=== PATIENT | male | born 1965 | race Caucasian/White ===

== ENCOUNTER 2019-12-31 11:05 | Day surgery (SDC) | payer OTHER, SELFPAY ==
[2019-12-31] VITALS (11 sets, daily range): BP systolic 110–136; BP diastolic 65–89; PULSE 60–83; RESP 16–20; TEMP 36.6; O2SAT 93–99; BMI 30.8
--- NOTE | 2019-12-31 | IR_ITS ---
APPROVED REPORT Patient Location: Outpatient [facility]reader Operator: ANA LUISA Samuels RT (R) PROCEDURES Left heart catheterization Left ventriculogram Selective coronary angiogram Drug-eluting stent deployment to the ostial proximal LAD Drug-eluting stent deployment to the distal right coronary arteries posterior descending artery INDICATION Coronary artery disease, Unstable angina Informed consent was obtained prior to the procedure. COMPLICATIONS NONE Estimated Blood Loss: LESS THAN 10 ML TECHNIQUE One percent lidocaine used to anesthetize the right anterior aspect of the wrist. The right radial artery was accessed via the Seldinger technique. A 6 [place] sheath was placed in the right radial artery. 2.5 mg of verapamil, 800 mcg of nitroglycerin, 1mg Lidocaine and 5000 U Heparin were given through the arterial sheath. The trap catheter was also used to perform left heart catheterization, left ventriculogram and selective coronary angiogram. At the end of the diagnostic angiogram therapeutic heparin was administered giving a therapeutic ACT and and I Patsy left guide catheter was placed in the left main artery. A Choice PT extra-support wire was then placed into the LAD where a 3 mm x 26 mm resolute kiya stent was deployed at 18 destinee reducing the critical stenosis to 0%. HAI-3 flow was present before and after the procedure. At the end of the procedure the apparatus was removed and the same catheter was used to intubate the right coronary artery and the wire was placed distally. A 2.25 x 12 mm resolute kiya stent was deployed in the posterior descending artery at 18 destinee reducing the severe stenosis to 0%. HAI-3 flow was present before and after the procedure. At the end of the procedure the apparatus was removed the sheath was removed good hemostasis was achieved using TR banding patient was transferred to the postop holding area stable condition ANGIOGRAPHIC RESULTS The left main artery Normal The left anterior descending artery Has an ostial 80 to 90% stenosis which extends throughout most of the proximal segment. Immediately adjacent to a second diagonal artery is a concentric 50% stenosis followed by an additional mid vessel 40% stenosis. The large first diagonal artery has a mid vessel 60 to 70% stenosis. The circumflex artery Is a nondominant yet still large vessel with a proximal 30% stenosis mid vessel 30% stenosis and a proximal 30% stenosis in the largest terminal obtuse marginal artery The right coronary artery Is a dominant vessel and has a 90% stenosis in the proximal posterior descending artery followed by mid vessel 50% stenosis The DIAZ ventriculogram reveals Normal 65% The left ventricular end-diastolic pressure 10 mmHg IMPRESSION Critical coronary disease as described above Successful stenting of the ostial proximal LAD severe disease reduced to 0% with one drug-eluting stent Persistent moderate to severe disease in the first diagonal artery and mid LAD Severe disease in the posterior descending artery Successful stenting of the posterior descending artery severe disease reduced to 0% with one drug-eluting stent PLAN 1. Brilinta 90 twice daily plus aspirin 81 mg daily 2. Lipitor 80 mg daily 3. Low-dose beta-blockers TORI inhibitors 4. Aggressive control of diabetes 5. Risk factor modification 6. Cardiac rehabilitation 7. Avoidance of tobacco products 8. The first diagonal artery and mid LAD is best managed medically. Should patient continue to experience angina pectoris these lesions could be revascularized at another time. I do believe they would respond most effectively to medical management. Electronically signed by : Bryce Lorenzo, 12/31/2019 12:35
[2019-12-31 11:26] LABS: Basophils # 0.1 K/mm3 (0-0.2); Basophils % 0.5 % (0.1-2.0); Eosinophils # 0.4 K/mm3 (0.0-0.4); Eosinophils % 3.2 % (0.1-12.0); Hematocrit 44.2 % (42.0-52.0); Hemoglobin 15.3 g/dL (14.1-18.0); Lymphocytes # 2.9 K/mm3 (0.7-4.5); Lymphocytes % 24.6 % (10-50); Mean Corpuscular HGB Conc 34.5 g/dL (31.8-35.4); Mean Corpuscular Hemoglobin 30.6 pg (27.0-31.2); Mean Corpuscular Volume 88.6 fl (80-94); Monocytes # 0.6 K/mm3 (0.1-1.0); Monocytes % 4.6 % (1.7-9.3); Neutrophils # 7.9 K/mm3 (1.8-7.8); Platelet Count 213 K/mm3 (142-424); Red Blood Count 4.99 M/mm3 (4.60-6.20); Red Cell Distribution Width 13.8 % (11.5-17.5); White Blood Count 11.8 K/mm3 (4.8-10.8)
[2019-12-31 11:33] LABS: Anion Gap 16.6 mEq/L (5-15); Blood Urea Nitrogen 13 mg/dl (9-20); Calcium 9.3 mg/dl (8.4-10.2); Carbon Dioxide 30 mmol/L (22.0-30.0); Chloride 98 mmol/L (98-107); Creatinine Clearance Estimated 129 mL/min (50-200); Estimated Glomerular Filt Rate 88 ml/min (>60); GFR (African American) 106 ML/MIN (>60); Glucose 153 mg/dl (74-100); Potassium 3.6 mmoL/L (3.5-5.1); Sodium 141 mmol/L (136-145)
[2019-12-31 11:53] LABS: Coronavirus 19 IgG Antibody Negative (Negative); Coronavirus 19 IgM Antibody Negative (Negative)
--- NOTE | 2019-12-31 13:45 | HMH.PHACLD ---
Yovani Marrero has received discharge medication counseling on the following medications: PATIENT IS ALREADY TAKING CARVEDILOL 12.5 MG BID, LOSARTAN 100 MG DAILY, AND ASPIRIN 81 MG DAILY. MD INCREASING ATORVASTATIN DOSE FROM 20 MG TO 80 MG DAILY. MD ALSO STARTING BRILINTA 90 MG BID. DISCUSSED CHANGES WITH PATIENT AND ALSO DISCUSSED HOLDING DOSE OF METFORMIN UNTIL MONDAY.
[2019-12-31 13:52] LABS: CATHL Activated Clotting Time > 400 SEC (74-125)
== END 2019-12-31 15:32 | disposition home or self-care (01) ==
PROVIDERS: PCP Nurse Practitioner Family; Visit Provider Internal Medicine
DX: I25.110 Atherosclerotic heart disease of native coronary artery with unstable angina pectoris (principal); I10 Essential (primary) hypertension; E78.5 Hyperlipidemia, unspecified; E11.9 Type 2 diabetes mellitus without complications; Z82.49 Family history of ischemic heart disease and other diseases of the circulatory system; Z79.01 Long term (current) use of anticoagulants; Z79.4 Long term (current) use of insulin; Z79.899 Other long term (current) drug therapy
CPT/HCPCS: 80048; 85025; 85347; 86328; 92928; 92929; 93458; 99152; 99153; C1725; C1769; C1876; C9600; C9601; J1644; Q9967

== ENCOUNTER → 2020-01-31 14:18 | Outpatient (CLI) | payer OTHER, SELFPAY ==
--- NOTE | 2020-01-31 14:18 | CT_ITS ---
PROCEDURE: CT CHEST WO CON CLINICAL INDICATION: chest pain, dyspnea STENTS PLACED 2-3 WEEKS AGO; CONTINUED MID CHEST AND LEFT ARM PAIN NO PRIOR COMPARISON: No exams were available for comparison TECHNIQUE: Axial images obtained with sagittal and coronal reformats. All CT scans at the facility use one or more dose reduction, viz: automated exposure control, ma/kV adjustment per patient size (including targeted exams where dose is matched to indication, i.e. head), or iterative reconstruction technique. FINDINGS: HEART AND MEDIASTINAL STRUCTURES: There are a few small mediastinal lymph nodes. No dominant adenopathy or hilar adenopathy evident. There are some scattered small mediastinal nodes. Coronary artery calcifications and/or stents are noted in there is minimal thickening of the pericardium. The there is mild thickening of the mid distal aspect of the esophagus. No evidence of aortic aneurysm LUNGS AND PLEURAL SPACES: Noncalcified 4 mm nodule right upper lobe image 22 series 3. 4 mm noncalcified nodule right lower lobe image 39 series 3. 4 mm noncalcified nodule in the right major fissure. Calcified nodule left major fissure 6 in the mid aspect and in the left lower lobe. Noncalcified 6 mm nodule left lower lobe. Noncalcified 6 mm nodule right middle lobe BONY STRUCTURES: No acute bony abnormalities apparent. UPPER ABDOMEN: Unremarkable. ADDITIONAL FINDINGS: There are some scattered small axillary lymph nodes. IMPRESSION: 1. There are scattered noncalcified pulmonary nodules measuring up to 6 mm bilateral. These could be inflammatory/infectious or neoplastic. Recommend six-month follow-up to confirm stability.. 2. Old granulomatous disease. 3. Coronary artery calcification Dictated by: Enrique Suarez MD 02/01/2020 07:37 Enrique Suarez MD in [place] 02/01/2020 07:39
--- NOTE | 2020-01-31 14:18 | XR_ITS ---
PROCEDURE: XR DEXA AXIAL SKELETON CLINICAL HISTORY: chest pain COMPARISON: No exams were available for comparison FINDINGS: The right hip BMD is 0.849 with a T-score of -0.6. The left hip BMD is 0.851 with a T-score of -1.2. The left forearm BMD is 0.704 with a T-score of -2.1. IMPRESSION: This patient is considered osteopenic according to the World Health Organization criteria. Bone density is between 10 and 25 percent below young normal. Fracture risk is moderate. Treatment is advised. Based on these results a follow-up exam is recommended in 2 year. Dictated by: Enrique Suarez MD 01/31/2020 19:57 Enrique Suarez MD in [facility] 02/01/2020 06:36
== END ==
PROVIDERS: PCP Nurse Practitioner Family; Visit Provider Internal Medicine
DX: R07.9 Chest pain, unspecified (principal); R06.00 Dyspnea, unspecified; R60.9 Edema, unspecified; I25.10 Atherosclerotic heart disease of native coronary artery without angina pectoris; E78.5 Hyperlipidemia, unspecified; I10 Essential (primary) hypertension; E11.9 Type 2 diabetes mellitus without complications; M85.89 Other specified disorders of bone density and structure, multiple sites; Z13.820 Encounter for screening for osteoporosis; Z82.49 Family history of ischemic heart disease and other diseases of the circulatory system
CPT/HCPCS: 71250; 77080

== ENCOUNTER 2020-02-04 08:43 | Day surgery (SDC) | payer OTHER, SELFPAY ==
[2020-02-04] VITALS (11 sets, daily range): BP systolic 103–124; BP diastolic 56–102; PULSE 50–69; RESP 2–20; TEMP 36.6; O2SAT 94–100; BMI 30.8
[2020-02-04 09:42] LABS: Basophils # 0.1 K/mm3 (0-0.2); Basophils % 0.7 % (0.1-2.0); Eosinophils # 0.4 K/mm3 (0.0-0.4); Eosinophils % 4.4 % (0.1-12.0); Hematocrit 40.7 % (42.0-52.0); Hemoglobin 14.2 g/dL (14.1-18.0); Lymphocytes # 1.9 K/mm3 (0.7-4.5); Lymphocytes % 23.2 % (10-50); Mean Corpuscular HGB Conc 34.9 g/dL (31.8-35.4); Mean Corpuscular Hemoglobin 30.7 pg (27.0-31.2); Monocytes # 0.5 K/mm3 (0.1-1.0); Monocytes % 5.9 % (1.7-9.3); Neutrophils # 5.5 K/mm3 (1.8-7.8); Neutrophils % 65.8 % (37.0-80.0); Platelet Count 240 K/mm3 (142-424); Red Blood Count 4.63 M/mm3 (4.60-6.20); Red Cell Distribution Width 14.1 % (11.5-17.5); White Blood Count 8.3 K/mm3 (4.8-10.8)
[2020-02-04 09:48] LABS: Chloride 106 mmol/L (98-107)
[2020-02-04 09:49] LABS: Potassium 3.8 mmoL/L (3.5-5.1); Sodium 143 mmol/L (136-145)
[2020-02-04 09:51] LABS: Blood Urea Nitrogen 15 mg/dl (9-20); Creatinine Clearance Estimated 146 mL/min (50-200); Estimated Glomerular Filt Rate 101 ml/min (>60); GFR (African American) 122 ML/MIN (>60)
[2020-02-04 09:52] LABS: Anion Gap 13.8 mEq/L (5-15); Calcium 9.2 mg/dl (8.4-10.2); Carbon Dioxide 27 mmol/L (22.0-30.0); Glucose 119 mg/dl (74-100)
--- NOTE | 2020-02-04 10:00 | IR_ITS ---
APPROVED REPORT Patient Location: Outpatient Academic Advising Director: ANA LUISA Samuels RT (R) PROCEDURES Left heart catheterization Left ventriculogram Selective coronary angiogram FFR to the LAD FFR to the large first diagonal artery INDICATION Known coronary disease, Recent coronary stenting, Recalcitrant chest pain/possible angina pectoris, Intermediate coronary disease Informed consent was obtained prior to the procedure. COMPLICATIONS NONE Estimated Blood Loss: LESS THAN 10 ML TECHNIQUE One percent lidocaine used to anesthetize the right anterior aspect of the wrist. The right radial artery was accessed via the Seldinger technique. A 6 Tajik sheath was placed in the right radial artery. 2.5 mg of verapamil, 800 mcg of nitroglycerin, 1mg Lidocaine and 5000 U Heparin were given through the arterial sheath. The trap catheter was also used to perform left heart catheterization, left ventriculogram and selective coronary angiogram. At the end the diagnostic angiogram therapeutic heparin was administered giving an ACT above 300 and a JL4 guide catheter was placed in the a sending aorta. An FFR wire was normalized and the catheter was used to engage the left main artery. The wire was placed distally in the LAD and adenosine was infused. The FFR index dropped to 0.84. At this point the wire was pulled back to the aorta re-normalized and 2 minutes passed. Catheter was then used to cannulate the left main artery and the wire was then placed in the first diagonal artery and adenosine was infused producing an FFR index of 0.86. At this point given neither lesion had hemodynamic significance the apparatus was removed the sheath was removed and hemostasis achieved using TR banding patient was transferred to the postop holding her stable condition ANGIOGRAPHIC RESULTS The left main artery Normal The left anterior descending artery Has a stent in the ostial proximal segment which is widely patent free of in-stent restenosis with excellent proximal distal transitioning. There is no encroachment upon the ramus intermedius or the circumflex artery from the ostial location of the stent. The distal aspect of the stent does JL the first diagonal artery which has an ostial 80 to 90% stenosis followed by a mid vessel 60 to 70% stenosis. Following the first diagonal artery the mid LAD then has a 40% stenosis The circumflex artery Is nondominant yet still a large system with an ostial proximal 30% stenosis mid vessel 30% stenosis and a proximal 30% stenosis in the largest of the obtuse marginal arteries. A small ramus intermedius is widely patent. The right coronary artery Is a dominant vessel and has proximal mid vessel and distal 10 to 20% luminal irregularities. A large posterior descending artery has a stent in the proximal segment which is widely patent free of in-stent restenosis with excellent transitioning distally. The remaining LAD has additional 20 and 30% stenoses The DIAZ ventriculogram reveals Normal 65% The left ventricular end-diastolic pressure 15 mmHg IMPRESSION Coronary disease as described above with widely patent stent in the ostial proximal LAD and proximal posterior descending artery Angiographically jailed first diagonal artery which has excellent flow when subjected to adenosine producing an FFR index of 0.86 Moderate disease in the mid LAD which produces an FFR index of 0.84 Normal ejection fraction Mildly elevated LVEDP PLAN 1. Continue medical management 2. Evaluation of noncardiac chest pain 3. Refer to GI for EGD Electronically signed by : Bryce Lorenzo, 02/04/2020 11:11:43
[2020-02-04 10:13] LABS: Coronavirus 19 IgG Antibody Negative (Negative); Coronavirus 19 IgM Antibody Negative (Negative)
== END 2020-02-04 13:24 | disposition home or self-care (01) ==
LOC: CATHLAB 08:46
PROVIDERS: PCP Nurse Practitioner Family; Visit Provider Internal Medicine
DX: I25.10 Atherosclerotic heart disease of native coronary artery without angina pectoris (principal); R07.9 Chest pain, unspecified; Z95.5 Presence of coronary angioplasty implant and graft; E11.9 Type 2 diabetes mellitus without complications; I10 Essential (primary) hypertension; Z79.4 Long term (current) use of insulin; Z79.01 Long term (current) use of anticoagulants; Z88.2 Allergy status to sulfonamides; Z88.8 Allergy status to other drugs, medicaments and biological substances
CPT/HCPCS: 80048; 85025; 86328; 93458; 93571; 93572; 99152; 99153; C1725; C1769; J0153; J1644; Q9967

== ENCOUNTER 2020-02-14 10:37 | Day surgery (SDC) | payer OTHER, SELFPAY ==
[2020-02-14 11:36] VITALS: BMI 29.9
[2020-02-14 11:37] VITALS: BP 123/65; PULSE 66; RESP 16; TEMP 36.4; O2SAT 98
[2020-02-14 11:49] LABS: POC Glucose,Bedside 164 (70-110)
[2020-02-14 11:55] LABS: Coronavirus 19 IgG Antibody Negative (Negative); Coronavirus 19 IgM Antibody Negative (Negative)
--- NOTE | 2020-02-14 13:52 | HMH.PROC ---
[facility] Procedure Note Procedure Note:: Upper Endoscopy Procedure Report: Esophagogastroduodenoscopy with cold biopsies Endoscopost: Bret Kirby II, MD Referring Physician: Bryce Lorenzo M.D./IVAN Hernandez Date of Procedure: February 14, 2020 Equipment: Olympus GIF 180 standard upper endoscope Sedation: MAC sedation Indications: Mr. Marrero is a 54-year-old gentleman with mid and left precordial chest pain which is noncardiac and felt to be esophageal chest pain. He has had prior coronary artery disease with occlusion of the left main artery with coronary stent placement. However, his more recent catheterization showed no significant occlusion. He does state that he has ongoing chest pain and pressure that can be intense and awaken him from sleep at 3 AM with a pinching sensation and chest pressure. He does get some intermittent dyspnea and having a difficult time getting a deep breath. He has had no cardiac stress test. He does have a history of GERD which is well controlled with pantoprazole. He reports no heartburn or reflux. He has some intermittent dysphagia. He also has moderate early satiety. He reports no bloating or belching. He gets some nausea with the chest pressure. He does have a history of Crohn's disease but has been asymptomatic for 20 to 30 years. He does avoid high residue foods. He does have type 2 diabetes mellitus. Procedure: Prior to the procedure, a history and physical exam was performed, and patient's medications and allergies were reviewed. The risks, benefits and alternatives of the sedation and procedure were discussed with the patient. All questions were answered and informed consent was obtained. The patient was brought to the procedure room. Patient identification and proposed procedure were verified by the physician and the nurse. The patient was placed in a left lateral decubitus position and the scope was passed under direct vision. Throughout the procedure, the patient's blood pressure, pulse, and oxygen saturations were monitored continuously. The upper GI endoscopy was accomplished without difficulty. The patient tolerated the procedure well. Findings: The scope was passed directly into the upper esophagus and advanced to the third portion of the duodenum. The post bulbar duodenum and duodenal bulb were normal with normal mucosa and conniventes. The scope was withdrawn through a normal duodenal bulb and pylorus into the stomach. There was moderate bile reflux with linear reactive gastropathy of the antrum and body. The remainder of the antrum, body and fundus of the stomach were grossly normal. Upon retroflexion there was a very small sliding 1 to 2 cm hiatal hernia. 2 biopsies were taken in the antrum and along the lesser curvature for histology to rule out gastritis and/or H pylori. The scope was then withdrawn into the esophagus. There was a serrated Z line. There were tertiary contractions and evidence of moderate esophageal dysmotility. There was no evidence of reflux esophagitis, Hayes's, Schatzki's ring or strictures. There was no evidence of eosinophilic esophagitis. The remainder of the esophageal mucosa was normal. Impression: 1. Nonerosive GERD with moderate esophageal dysmotility and very small 1 to 2 cm hiatal hernia 2. Bile reflux with mild linear reactive gastropathy Plan: I will follow-up the biopsies. This certainly could be esophageal chest pain from functional GERD and esophageal dyskinesia/esophageal spasm. I will discuss additional dietary measures and treatment options.
[2020-02-14 13:55] VITALS: BP 108/67; PULSE 77; RESP 18; TEMP 36.1; O2SAT 93
[2020-02-14 14:05] VITALS: BP 100/67; PULSE 66; RESP 18; O2SAT 96
[2020-02-14 14:15] VITALS: BP 117/74; PULSE 60; RESP 18; O2SAT 96
--- NOTE | 2020-02-14 14:27 | P.PN_ITS ---
[facility] Anesthesia Checklist - Patient Identification Patient Identification: Arm Band - Structural Data Admitted From: Home Planned Operative Procedure/s: egd Consent for Planned Operative Procedure(s) Verified: Yes Verified Documents: Surgical Consent, History and Physical - NPO Status Verified Time NPO: 00:00 - Additional verifications Anesthesia Reactions: No - Airway Assessment C-Spine Mobility Assessed: Yes (mp2) TMJ Mobility Assessed: Yes Dentition: Good Dentition - Neurological Assessment Level of Consciousness: Awake, Alert - Anesthesia Plan Anesthesia Risk discussed: Yes Anesthesia Plan: Verified ASA Class: III Anesthesia Type: MAC [facility] History I have reviewed the patient's past medical history: Yes Medical History: Reports:: Coronary Artery Disease, Diabetes Mellitus Type 2, Hyperlipidemia, Hypertension Denies:: Cancer, Diabetes Mellitus Type 1, Internal Pacemaker, MRSA, Seizures *Have you ever received a pneumonia vaccine?: Yes *Have you received a flu vaccine this season?: Yes Anesthesia experience/problems:: nac Laterality Cases: Bilateral: Tonsillectomy Other Surgeries: Yes: Cardiac Catheterization, Coronary Stent, Other. No: Pacemaker Amputation: No Fractures: No - *Social History Smoking Status: Never smoker Alcohol Intake: never Substance Use Type: denies use *Occupational Status:: employed Housing: house Household Members: spouse *Travel in the last 8 weeks: None Family Hx:: Coronary Artery Disease
[2020-02-14 14:40] VITALS: BP 111/69; PULSE 61; RESP 18; O2SAT 96
== END 2020-02-14 14:40 | disposition home or self-care (01) ==
PROVIDERS: PCP Nurse Practitioner Family; Visit Provider Internal Medicine Gastroenterology
PROC: 0DJ08ZZ Inspection of Upper Intestinal Tract, Via Natural or Artificial Opening Endoscopic (ICD-10-PCS; CPT 43235; principal; 2020-02-14 13:00)
DX: K21.9 Gastro-esophageal reflux disease without esophagitis (principal); K22.4 Dyskinesia of esophagus; K31.9 Disease of stomach and duodenum, unspecified; K44.9 Diaphragmatic hernia without obstruction or gangrene; E11.9 Type 2 diabetes mellitus without complications; I25.10 Atherosclerotic heart disease of native coronary artery without angina pectoris; E78.5 Hyperlipidemia, unspecified; I10 Essential (primary) hypertension; Z90.89 Acquired absence of other organs; Z86.718 Personal history of other venous thrombosis and embolism; Z88.2 Allergy status to sulfonamides; Z88.8 Allergy status to other drugs, medicaments and biological substances
CPT/HCPCS: 43239; 36415; 82962; 86328

== ENCOUNTER → 2020-03-11 14:48 | Outpatient (CLI) | payer OTHER, SELFPAY ==
[2020-03-11 15:53] LABS: Coronavirus 19 IgG Antibody Negative (Negative); Coronavirus 19 IgM Antibody Negative (Negative)
== END ==
PROVIDERS: Visit Provider Internal Medicine Gastroenterology
DX: Z01.818 Encounter for other preprocedural examination (principal); Z03.818 Encounter for observation for suspected exposure to other biological agents ruled out; Z12.11 Encounter for screening for malignant neoplasm of colon; Z87.19 Personal history of other diseases of the digestive system
CPT/HCPCS: 36415; 86328

== ENCOUNTER 2020-03-13 10:17 | Day surgery (SDC) | payer OTHER, SELFPAY ==
[2020-03-09 11:40] VITALS: BMI 30.9
[2020-03-13 10:48] VITALS: BP 138/78; PULSE 75; RESP 18; TEMP 36.4; O2SAT 97
--- NOTE | 2020-03-13 11:53 | P.PN_ITS ---
[facility] Anesthesia Checklist - Patient Identification Patient Identification: Arm Band, Verbal (Name & ) - Structural Data Admitted From: Home Planned Operative Procedure/s: Colonoscopy Consent for Planned Operative Procedure(s) Verified: Yes Verified Documents: Surgical Consent, History and Physical - NPO Status Verified Time NPO: 00:00 - Chart Verification Results Verified: CBC, BMP - Additional verifications Anesthesia Reactions: No - Airway Assessment C-Spine Mobility Assessed: Yes TMJ Mobility Assessed: Yes Dentition: Good Dentition - Neurological Assessment Level of Consciousness: Awake, Appropriate Hx Seizures: No Numbness or tingling in extremities: No - Anesthesia Plan Anesthesia Risk discussed: Yes Anesthesia Plan: Verified ASA Class: III Anesthesia Type: MAC [facility] History I have reviewed the patient's past medical history: Yes Medical History: Reports:: Atherosclerotic Heart Disease, Coronary Artery Disease, Diabetes Mellitus Type 2, Gastroesophageal Reflux Disease(GERD), Hyperlipidemia, Hypertension Denies:: Cancer, Diabetes Mellitus Type 1, Internal Pacemaker, MRSA, Seizures *Have you ever received a pneumonia vaccine?: No *Have you received a flu vaccine this season?: No Comment:: Crohns, obesity Anesthesia experience/problems:: none Laterality Cases: Right: Arthroscopy Knee, Bilateral: Tonsillectomy Other Surgeries: Yes: No Previous Surgery, Cardiac Catheterization, Coronary Stent, Other. No: Pacemaker Amputation: No Fractures: No - *Social History Last grade of school completed: High school graduate Smoking Status: Never smoker Alcohol Intake: never Substance Use Type: denies use *Occupational Status:: employed Housing: house Household Members: spouse *Travel in the last 8 weeks: None Family Hx:: Coronary Artery Disease
--- NOTE | 2020-03-13 12:04 | HMH.PROC ---
[facility] Procedure Note Procedure Note:: Colonoscopy Procedure Report: Colonoscopy with cold snare polypectomy Endoscopist: Bret Kirby II, MD Referring physician: Bryce Lorenzo MD, IVAN Hernandez Date of Procedure: March 13, 2020 Equipment: Olympus 180 variable stiffness pediatric colonoscope Sedation: MAC sedation Indication: Mr. Marrero is a 54-year-old gentleman who is here for routine screening colonoscopy. The patient does report having a history of Crohn's disease but his last colonoscopy was 15 to 20 years ago. He reports no rectal bleeding, abdominal pain, weight loss or change in bowel habits. He reports no family history of colon cancer. I had seen me for diagnostic upper endoscopy secondary to mid and left precordial chest pain/noncardiac chest pain. This was felt to be possibly esophageal chest pain. He does have a history of GERD which was well controlled with pantoprazole. His EGD did show nonerosive GERD with mild esophageal dysmotility and very small 1 to 2 cm hiatal hernia. I did recommend MiraLAX plus Konsyl daily. He does state that his chest pain is not improved. He is concerned about the possibility of multiple sclerosis. Procedure: Prior to the procedure, a history and physical exam was performed, and patient's medications and allergies were reviewed. The risks, benefits and alternatives of the sedation and procedure were discussed with the patient. All questions were answered and informed consent was obtained. The patient was brought to the procedure room. Patient identification and proposed procedure were verified by the physician and the nurse. The patient was placed in a left lateral decubitus position and the scope was passed under direct vision. Throughout the procedure, the patient's blood pressure, pulse, and oxygen saturations were monitored continuously. The colonoscopy was accomplished without difficulty. The patient tolerated the procedure well. Findings: On digital rectal examination there was normal rectal tone. There were no external hemorrhoids. The prostate was 2+, smooth soft symmetric without nodules. The colonoscope was introduced through the anal canal to the rectum and advanced to the cecum. The ileocecal valve and appendiceal orifice were identified. The scope was advanced a short distance into the ileum which appeared grossly normal. There was no evidence of Crohn's disease of the ileum. The scope was then withdrawn into the colon. There was a single 5 mm polyp in the descending colon removed via cold snare polypectomy. The remaining cecum, ascending, transverse, descending, sigmoid and rectum were grossly normal. There were no other mucosal abnormalities identified. Upon retroflexion within the rectum there were grade 1-2 internal hemorrhoids.The preparation was excellent throughout with [place] Preparation Score of 9. The cecal time was 12 minutes. Impression: 1. Diminutive descending colon polyp 2. Grade 1-2 internal hemorrhoids Plan: There was no evidence of Crohn's ileitis or colitis which is good news. I will follow-up the polyp histology and recommend repeat screening/surveillance colonoscopy again in 7 to 10 years based upon the pathology. The patient continues to have similar chest pain that has not improved. We will discuss additional diagnostic and treatment options.
[2020-03-13 12:05] VITALS: BP 107/61; PULSE 84; RESP 16; TEMP 36.6; O2SAT 94
[2020-03-13 12:15] VITALS: BP 102/59; PULSE 75; RESP 16; TEMP 36.6; O2SAT 94
[2020-03-13 12:25] VITALS: BP 121/89; PULSE 84; RESP 16; TEMP 36.6; O2SAT 96
[2020-03-13 12:29] LABS: POC Glucose,Bedside 125 (70-110)
[2020-03-13 12:35] VITALS: BP 112/76; PULSE 77; RESP 18; TEMP 36.6; O2SAT 98
[2020-03-13 12:58] VITALS: BP 124/75; PULSE 71; RESP 18; TEMP 36.6; O2SAT 97
== END 2020-03-13 12:58 | disposition home or self-care (01) ==
LOC: OUTP 10:18
PROVIDERS: PCP Nurse Practitioner Family; Visit Provider Internal Medicine Gastroenterology
PROC: 0DJD8ZZ Inspection of Lower Intestinal Tract, Via Natural or Artificial Opening Endoscopic (ICD-10-PCS; CPT 45378; principal; 2020-03-13 11:30)
DX: Z12.11 Encounter for screening for malignant neoplasm of colon (principal); Z87.19 Personal history of other diseases of the digestive system; K63.5 Polyp of colon; K64.0 First degree hemorrhoids; I25.10 Atherosclerotic heart disease of native coronary artery without angina pectoris; E11.9 Type 2 diabetes mellitus without complications; K21.9 Gastro-esophageal reflux disease without esophagitis; E78.5 Hyperlipidemia, unspecified; I10 Essential (primary) hypertension; Z87.39 Personal history of other diseases of the musculoskeletal system and connective tissue; Z90.49 Acquired absence of other specified parts of digestive tract; Z79.899 Other long term (current) drug therapy
CPT/HCPCS: 45385; 82962

== ENCOUNTER → 2020-12-15 10:46 | Outpatient (CLI) | payer OTHER, SELFPAY ==
[2020-12-15 11:43] LABS: Alanine Aminotransferase 14 U/L (12-78); Albumin Level 4.5 g/dl (3.5-5.0); Alkaline Phosphatase 84 U/L (38-126); Aspartate Amino Transferase 17 U/L (17-59); Bilirubin,Direct 0.4 mg/dl (0.0-0.4); Bilirubin,Indirect 0.9 mg/dL (0.0-0.9); Bilirubin,Total 1.3 mg/dl (0.2-1.3); Bilirubin,Unconjugated 0.9 mg/dL (0.0-1.1); Cholesterol 86 mg/dl (140-200); HDL Cholesterol 29 mg/dl (40-60); Total Protein,Serum 7.5 g/dl (6.3-8.2); Triglycerides 78 mg/dl (30-150); VLDL Cholesterol 16 mg/dL (0-40)
== END ==
PROVIDERS: Visit Provider Internal Medicine
DX: R06.00 Dyspnea, unspecified (principal); E78.2 Mixed hyperlipidemia; I10 Essential (primary) hypertension; I25.10 Atherosclerotic heart disease of native coronary artery without angina pectoris
CPT/HCPCS: 36415; 80061; 80076

== ENCOUNTER 2023-07-25 08:34 | Observation (INO) | payer MEDICARE, SELFPAY ==
[2023-07-25] VITALS (23 sets, daily range): BP systolic 90–133; BP diastolic 56–79; PULSE 53–80; RESP 8–18; TEMP 36.6; O2SAT 94–100; BMI 29.5
--- NOTE | 2023-07-25 | IR_ITS ---
APPROVED REPORT Patient Location: [facility] Analyst: ANA LUISA Rich RT (R) PROCEDURES Left heart catheterization Left ventriculogram Selective coronary angiogram Drug-eluting stent deployment to the proximal and mid LAD in a contiguous manner Drug-eluting stent deployment to the ostial proximal circumflex artery in a contiguous manner FFR angiography to the circumflex artery INDICATION Unstable angina, Coronary artery disease Informed consent was obtained prior to the procedure. COMPLICATIONS None Estimated Blood Loss: Less than 10 mls TECHNIQUE One percent lidocaine used to anesthetize the right anterior aspect of the wrist. The right radial artery was accessed via the Seldinger technique. A 6 Sami sheath was placed in the right radial artery. 2.5 mg of Verapamil, 800 mcg of nitroglycerin, 1mg Lidocaine and 5000 U Heparin were given through the arterial sheath. The papa catheter was also used to perform left heart catheterization, left ventriculogram and selective coronary angiogram. At the end of the diagnostic angiogram therapeutic heparin was administered giving a therapeutic ACT and the guide catheter was placed in left main artery followed by Choice PT to support wire placed down the LAD. A 2.5 x 38 mm Nick frontier stent was deployed at 20 destinee reducing the severe stenosis. A 3 mm x 26 mm was deployed at 20 destinee proximal to the for stent yet still overlapping it. The balloon was then advanced and deployed at 18 destinee mesh in the 2 stents and further post dilating the proximal to midportion of the 2.5 mm stent. HAI-3 flow was present before and after the procedure following this an additional wire was placed in the circumflex artery. FFR angiography was performed and the ostium measured 0.89 in the midportion 0.81 in the distal circumflex artery 0.68. Because of this a 3 mm x 22 mm Faulkner frontier stent was placed in the ostial circumflex artery and deployed at 20 destinee. An additional 3 mm x 8 mm Nick frontier stent was placed distal to the for stent yet still overlapping it and deployed at 18 destinee. The balloon was brought back and deployed at 20 destinee to post dilate. HAI-3 flow was present before and after the procedure. After achieving excellent angiographic results the apparatus was removed the sheath was removed and hemostasis was achieved using TR banding patient was transferred to the postop holding area in stable condition. Given inflow was increased to the ostial and proximal segment of the circumflex artery it was decided not to stent the distal portion of the circumflex artery. ANGIOGRAPHIC RESULTS The left main artery Normal The left anterior descending artery Has a stent in the ostial through proximal segment which is widely patent with minimal in-stent restenosis. Following the large first diagonal artery there is 50 and 60% stenosis followed by an additional focal concentric 90% stenosis followed by additional 50% stenoses. Distally the vessel has 30% stenoses The circumflex artery Is a codominant vessel and has ostial 50% stenosis followed by an additional proximal 50 to 60% stenosis with an additional 70% stenosis. The first substantive obtuse marginal artery has proximal 40% stenosis while the proximal second obtuse marginal artery has a concentric 70 to 80% stenosis however the vessel was slightly smaller than 2 mm in diameter The right coronary artery Is a codominant vessel and has proximal 30% stenoses with distal 30% stenoses throughout the posterior descending artery The DIAZ ventriculogram reveals Normal 65% The left ventricular end-diastolic pressure 15 mmHg IMPRESSION Severe mid LAD disease as described above with successful stenting of the proximal mid LAD reducing moderate and severe disease to 0% with 2 contiguous drug-eluting stents Moderate to severe ostial proximal circumflex artery which extended into a severely diseased terminal obtuse marginal artery with successful stenting of the ostial proximal circumflex artery reducing the stenosis to 0% and increasing inflow distally while treating the distal vessel medically due to smaller caliber distal vessel Normal ejection fraction Borderline LVEDP PLAN 1. Dual antiplatelet therapy 2. Cardiac rehabilitation 3. Avoidance of tobacco products 4. Aggressive risk factor modification 5. LDL less than 55 to be achieved with high intensity statin Electronically signed by : Bryce Lorenzo MD 07/25/2023 15:57:39
--- NOTE | 2023-07-25 08:36 | ECG_ITS ---
APPROVED REPORT Exam: Resting ECG HR:60 bpm ECG Measurements Heart Rate 60 AXES NM 161 P 36 QRSd 90 QRS 45 QT 422 T 46 QTc 422 Conclusion SINUS RHYTHM WITH OCCASIONAL VENTRICULAR PREMATURE COMPLEXES BORDERLINE ECG UNCONFIRMED REPORT Electronically signed by : ISHAAN BLACKWELL, 07/25/2023 10:48:52
--- NOTE | 2023-07-25 08:43 | ED_ITS ---
Discharge Plan Disposition Patient Disposition: Admitted Condition: Good Chief Complaint: Chest Pain Clinical Impressions Clinical Impression: Unstable angina Discharge ED Provider: Viktor Asher Adult HPI General Chief complaint: Chest Pain Stated complaint: Chest Pain Time Seen by Provider: 07/25/23 08:43 History of Present Illness HPI narrative: 57-year-old male with past medical history significant for DM2, GERD, HTN, HLD, CAD, cardiac catheterization with stent placement in December 2019, presents today for evaluation concerning chest pain and shortness of breath. He notes that he has had chest pain and shortness of breath intermittently over the past 6 months however his symptoms have worsened over the past 2 to 3 weeks. He also reports worsening of shortness of breath when laying flat. Current chest pain is substernal and rated as a 5 out of 10. Has not had any fevers, chills, nausea, vomiting, abdominal pain, dysuria, hematuria or any other associated symptoms. Related Data Home Medications Medication Instructions Recorded Confirmed aspirin 81 mg tablet,delayed 81 mg PO DAILY Heart disease 12/31/19 12/14/21 release (Adult Low Dose Aspirin) empagliflozin 10 mg tablet 10 mg PO DAILY Diabetes 12/31/19 12/14/21 (Jardiance) hydrochlorothiazide 25 mg tablet 25 mg PO DAILY High blood pressure 12/31/19 12/14/21 insulin detemir U-100 100 unit/mL 50 unit SQ QHS Diabetes 12/31/19 12/14/21 (3 mL) subcutaneous pen (Levemir FlexTouch U-100 Insulin) losartan 100 mg tablet 100 mg PO DAILY High blood pressure 12/31/19 12/14/21 metformin 1,000 mg tablet 1,000 mg PO BID Diabetes 12/31/19 12/14/21 pantoprazole 40 mg tablet,delayed 40 mg PO DAILY GERD 02/13/20 12/14/21 release glimepiride 4 mg tablet 2 mg PO DAILY 06/15/20 12/14/21 gabapentin 300 mg capsule 300 mg PO DAILY Pain 12/14/21 12/14/21 gabapentin 800 mg tablet 800 mg PO HS 12/14/21 12/14/21 hydrocodone 10 mg-acetaminophen 1 tab PO Q8H PRN 12/14/21 12/14/21 325 mg tablet Previous Rx's Medication Instructions Recorded atorvastatin 80 mg tablet 80 mg PO QHS Cholesterol #90 tabs 01/07/20 clopidogrel 75 mg tablet See Rx Instructions .Route 02/08/21 .COMPLEX #90 tabs carvedilol 25 mg tablet See Rx Instructions .Route 03/16/21 .COMPLEX #60 tabs amlodipine 5 mg tablet See Rx Instructions .Route 03/17/21 .COMPLEX #30 tabs Allergies Allergy/AdvReac Type Severity Reaction Status Date / Time promethazine [From Phenergan] Allergy Mild Verified 12/14/21 10:40 buspirone [From BuSpar] Allergy Verified 07/25/23 08:49 Sulfa (Sulfonamide Allergy Verified 12/14/21 10:40 Antibiotics) chlorin Allergy Uncoded 12/15/20 11:04 PFSH [facility] Disclaimer: The information contained in this section may have been updated after the patient was seen, as this information can be updated by other users. Medical History (Updated 07/25/23 @ 14:38 by Viktor Asher DO) Chest pain Diabetes mellitus Dyspnea Edema Family history of heart disease Gastroesophageal reflux disease Unstable angina Social History Smoking Status: Never smoker second hand exposure: No alcohol intake: never substance use type: denies use current occupational status: employed Travel in the last 8 weeks: Inside the [place] household members: spouse housing: house current occupation: [employer] current occupational exposures/hazards: Yes caffeine: Yes ROS Obtained: Yes All systems reviewed & no additional complaints except as documented Physical Exam General General appearance: alert and in no apparent distress Head Head exam: atraumatic and normocephalic Eye Eye exam: Present normal appearance, PERRL and EOMI ENT ENT exam: Present normal oropharynx and mucous membranes moist Neck Neck exam: Present full ROM; Absent meningismus Respiratory Respiratory exam: Absent respiratory distress, wheezes, stridor or accessory muscle use Cardiovascular Cardiovascular exam: Present normal rhythm Abdominal Exam Abdominal exam: Present soft; Absent distention, tenderness, guarding, rebound or rigidity Neurological Exam Neurological exam: Present alert, oriented X3 and CN II-XII intact; Absent motor sensory deficit Psychiatric Psychiatric exam: Present normal affect and normal mood Skin Skin exam: Present warm and dry Medical Decision Making Medical Records Medical records reviewed: Yes I reviewed the patient's medical records. Jimenez Inquiry Pt receiving controlled substance: No Jimenez was queried for this patient: No Vital Signs: 07/25/23 08:35 07/25/23 09:01 07/25/23 09:30 Temperature 97.9 F Temperature Source Oral Pulse Rate 60 58 L Pulse Rate [Radial] 60 Respiratory Rate 18 16 9 L Blood Pressure 112/66 113/63 Blood Pressure [Right Arm] 107/74 L Blood Pressure Mean 80 70 Blood Pressure Mean [Right Arm] 85 Blood Pressure Source [Right Arm] Automatic Cuff Blood Pressure Position [Right Arm] Sitting 02 Sat by Pulse Oximetry 98 99 97 Oxygen Delivery Method Room Air Room Air 07/25/23 10:00 07/25/23 10:30 07/25/23 11:00 Temperature Temperature Source Pulse Rate 57 L 66 53 L Pulse Rate [Radial] Respiratory Rate 8 L 17 12 Blood Pressure 106/58 L 99/65 L 98/62 L Blood Pressure [Right Arm] Blood Pressure Mean 67 Blood Pressure Mean [Right Arm] Blood Pressure Source [Right Arm] Blood Pressure Position [Right Arm] 02 Sat by Pulse Oximetry 98 97 98 Oxygen Delivery Method Room Air Room Air 07/25/23 11:30 07/25/23 12:01 07/25/23 12:30 Temperature Temperature Source Pulse Rate 56 L 56 L 56 L Pulse Rate [Radial] Respiratory Rate 15 9 L 13 Blood Pressure 90/56 L 122/68 100/58 L Blood Pressure [Right Arm] Blood Pressure Mean 65 86 73 Blood Pressure Mean [Right Arm] Blood Pressure Source [Right Arm] Blood Pressure Position [Right Arm] 02 Sat by Pulse Oximetry 96 100 98 Oxygen Delivery Method 07/25/23 13:01 Temperature Temperature Source Pulse Rate 59 L Pulse Rate [Radial] Respiratory Rate 11 L Blood Pressure 105/56 L Blood Pressure [Right Arm] Blood Pressure Mean 63 Blood Pressure Mean [Right Arm] Blood Pressure Source [Right Arm] Blood Pressure Position [Right Arm] 02 Sat by Pulse Oximetry 97 Oxygen Delivery Method Lab Data Lab Results 07/25/23 08:37: WBC 8.0, RBC 4.60, Hgb 13.8 L, Hct 42.6, MCV 92.7, MCH 29.9, MCHC 32.3, RDW 14.1, Plt Count 244, MPV 8.3, Neut % (Auto) 58.2, Lymph % (Auto) 31.7, [place] % (Auto) 5.7, Eos % (Auto) 3.5, Baso % (Auto) 0.8, Neut # (Auto) 4.6, Lymph # (Auto) 2.5, [place] # (Auto) 0.5, Eos # (Auto) 0.3, Baso # (Auto) 0.1, Sodium 141, Potassium 3.5, Chloride 105, Carbon Dioxide 28, Anion Gap 11.5, BUN 17, Creatinine 1.10, Estimated Creat Clear 101, Estimated GFR 69, Est GFR ( Amer) 83, Glucose 119 H, Calcium 9.0, Magnesium 2.2, Total Bilirubin 0.5, AST 21, ALT 22, Alkaline Phosphatase 73, Troponin I < 0.01, NT-Pro-B Natriuret Pep 65.1, Total Protein 7.1, Albumin 4.4, Globulin 2.7, Albumin/Globulin Ratio 1.6 07/25/23 12:01: Troponin I < 0.01 07/25/23 08:37 07/25/23 08:37 Orders (Tests/Meds): ED MEDICATIONS Generic Name Dose Route Start Last Admin Trade Name Freq PRN Reason Stop Dose Admin Fentanyl Citrate 50 mcg 07/25/23 14:23 Fentanyl 100mcg/2ml Vial IV 07/26/23 02:23 Q3MINP PRN Moderate to Severe Pain (4-10) Fentanyl Citrate 25 mcg 07/25/23 14:23 Fentanyl 250mcg/5ml Vial IV 07/26/23 02:23 Q3MINP PRN Moderate to Severe Pain (4-10) Fentanyl Citrate 50 mcg 07/25/23 14:23 Fentanyl 250mcg/5ml Vial IV 07/26/23 02:23 Q3MINP PRN Moderate to Severe Pain (4-10) Fentanyl Citrate 25 mcg 07/25/23 14:23 Fentanyl 100mcg/2ml Vial IV 07/26/23 02:23 Q3MINP PRN Moderate to Severe Pain (4-10) Flumazenil 0.2 mg 07/25/23 14:23 Flumazenil 0.1mg/Ml 5ml Vial IV 07/26/23 02:23 NEEDED PRN Sedation Heparin Sodium (Porcine) 10,000 unit 07/25/23 14:23 Heparin 1,000 Units/Ml 10ml Vial ([employer]) IV 07/25/23 18:23 NEEDED PRN [employer] Heparin Sodium/Sodium Chloride 3,000 unit 07/25/23 14:23 Heparin 1,000 Units/500ml Ns ([employer]) IV 07/25/23 14:24 ONCE ONE Hydralazine HCl 20 mg 07/25/23 14:23 Hydralazine 20mg/Ml Vial IV 07/25/23 18:23 ONCE PRN sbp>160 Adenosine 180 mg/ Sodium 90 mls @ 519.275 mls/hr 07/25/23 14:23 Chloride IV 07/25/23 18:23 ONCE PRN fractional flow reserve 180 MCG/KG/MIN Adenosine 90 mg/ Sodium 90 mls @ 1,038.55 mls/hr 07/25/23 14:23 Chloride IV 07/25/23 18:23 ONCE PRN fractional flow reserve 180 MCG/KG/MIN Sodium Chloride 1,000 mls @ 25 mls/hr 07/25/23 14:30 Sod Chloride 0.9% 500ml Bag IV 07/26/23 14:23 .Q25H JOVANY Insulin Human Lispro 0 unit 07/25/23 16:30 Humalog 100 Units/Ml 3ml Vial ([facility]) SQ 08/24/23 16:29 ACHS JOVANY Protocol Labetalol HCl 20 mg 07/25/23 14:23 Labetalol 20mg/4ml Syringe IV 07/25/23 18:23 ONCE PRN sbp>160 Lidocaine HCl 20 ml 07/25/23 14:23 Lidocaine 1% 10ml Mdv IJ 07/25/23 14:24 ONCE ONE Lidocaine HCl 20 ml 07/25/23 14:23 Lidocaine 1% 5ml Pf Vial IJ 07/25/23 14:24 ONCE ONE Midazolam HCl 1 mg 07/25/23 14:23 Midazolam 2mg/2ml Vial IV 07/26/23 02:23 Q3MINP PRN Sedation Midazolam HCl 1 mg 07/25/23 14:23 Midazolam Hcl 1mg/1ml 5ml Vial IV 07/26/23 02:23 Q3MINP PRN Sedation Naloxone HCl 0.4 mg 07/25/23 14:23 Naloxone 0.4mg/Ml Vial IV 07/26/23 02:23 Q5MINP PRN Decreased Respirations Nitroglycerin 800 mcg 07/25/23 14:23 Nitroglycerin 800mcg/8ml Syr ([employer]) IA 07/25/23 18:23 NEEDED PRN [employer] Protamine Sulfate 50 mg 07/25/23 14:23 Protamine Sulfate 50mg/5ml Vial ([employer]) IV 07/25/23 18:23 ONCE PRN act>200 Sodium Chloride 10 ml 07/25/23 08:47 Sodium Chloride 0.9% 10ml Flush Syringe IV 08/24/23 08:46 NEEDED PRN Maintain IV Site Sodium Chloride 10 ml 07/25/23 14:23 Sodium Chloride 0.9% 10ml Flush Syringe IV 08/24/23 14:22 NEEDED PRN Maintain IV Site Verapamil HCl 2.5 mg 07/25/23 14:23 Verapamil 2.5mg/Ml 2ml Vial IV 07/25/23 14:24 ONCE ONE Discontinued Medications Generic Name Dose Route Start Last Admin Trade Name Freq PRN Reason Stop Dose Admin Diphenhydramine HCl 50 mg 07/25/23 14:21 Diphenhydramine 50mg/Ml Vial IV 07/25/23 14:22 ONCE ONE ORDERS Category Date Time Status Cardiology Consult [Consult to Cardiology] [CONS] Cons 07/25/23 13:39 Active Routine Consult to Cardiology [CONS] Routine Cons 07/25/23 09:06 Active XR chest portable Stat Exams 07/25/23 08:47 Completed BNP [Brain Natriuretic Peptide] Stat Lab 07/25/23 08:37 Completed Complete Blood Count Auto Diff AMLAB Lab 07/26/23 06:00 Ordered Complete Blood Count Auto Diff Stat Lab 07/25/23 08:37 Completed Comprehensive Metabolic Panel AMLAB Lab 07/26/23 06:00 Ordered Comprehensive Metabolic Panel Stat Lab 07/25/23 08:37 Completed Hemoglobin A1C Stat Lab 07/25/23 12:01 Received Lipid Panel AMLAB Lab 07/26/23 06:00 Ordered Magnesium AMLAB Lab 07/26/23 06:00 Ordered Magnesium Stat Lab 07/25/23 08:37 Completed Troponin I Q3H Lab 07/25/23 12:01 Completed Troponin I Q3H Lab 07/25/23 15:00 Ordered Troponin I Stat Lab 07/25/23 08:37 Completed ECG Data Tracing #1: I reviewed this ECG and interpreted as documented below: EKG personally interpreted by me. Sinus rhythm with occasional PVCs, rate of [address] elevations noted. HEART Score History (anamnesis): Moderately suspicious ECG: Non-specific disturbance Age: 45-65 years Risk factors: Atherosclerosis history Troponin: </= normal limit HEART Score: 5 Medical Decision Narrative: 57-year-old male with past medical history significant for DM2, GERD, HTN, HLD, CAD, cardiac catheterization with stent placement in December 2019, presents today for evaluation concerning chest pain and shortness of breath. He notes that he has had chest pain and shortness of breath intermittently over the past 6 months however his symptoms have worsened over the past 2 to 3 weeks. He also reports worsening of shortness of breath when laying flat. On assessment, he was hemodynamically stable and in no acute distress. Afebrile. Appropriate oxygen saturation on room air. Chest was clear to auscultation bilaterally. No re producible chest tenderness on palpation. Abdomen soft nondistended nontender to palpation. Other physical exam findings unremarkable. Differential diagnoses include not limited to STEMI, NSTEMI, pleural effusion, pneumonia, heart failure, viral syndrome, among others. EKG was ordered and personally interpreted by me and was without signs concerning for ischemia. CBC and CMP were both nonactionable. Magnesium within range at 2.2. First and second troponin less than 0.01. Chest x-ray revealed atelectasis. On reassessment, the patient linden medically stable and in no acute distress. Pain well-controlled at this time. I discussed his ED workup and results and current plan to admit to cardiology for cardiac catheterization. I did speak with Dr. Lorenzo himself who did note that he would like the patient to be admitted for cardiac catheterization considering his significant history. Patient verbalized understanding and agreement with plan. I did speak with hospital medicine and they accepted admission for further management. Critical Care Critical Care Time Critical Care Time: No
--- NOTE | 2023-07-25 08:47 | XR_ITS ---
FINAL REPORT CLINICAL HISTORY: CHEST PAIN COMPARISON: None FINDINGS: A single portable view of the chest was obtained. The heart size and pulmonary vascularity are within normal limits. The mediastinum is within normal limits. Mild right base opacities are favored to represent atelectasis over pneumonia. The bony thorax is intact. IMPRESSION: Moderate base opacities favor atelectasis over pneumonia. Reviewed, Interpreted and Dictated by Naseem Boyer III, MD Transcribed by Isatu Rawls Authenticated and [facility]
--- NOTE | 2023-07-25 08:51 | PC.NURSE ---
XR AT BEDSIDE
[2023-07-25 08:56] LABS: Basophils # 0.1 K/mm3 (0-0.2); Basophils % 0.8 % (0.1-2.0); Eosinophils # 0.3 K/mm3 (0.0-0.4); Eosinophils % 3.5 % (0.1-12.0); Hematocrit 42.6 % (42.0-52.0); Hemoglobin 13.8 g/dL (14.1-18.0); Lymphocytes # 2.5 K/mm3 (0.7-4.5); Lymphocytes % 31.7 % (10-50); Mean Corpuscular HGB Conc 32.3 g/dL (31.8-35.4); Mean Corpuscular Hemoglobin 29.9 pg (27.0-31.2); Mean Corpuscular Volume 92.7 fl (80-94); Mean Platelet Volume 8.3 fl (7.4-10.4); Monocytes # 0.5 K/mm3 (0.1-1.0); Monocytes % 5.7 % (1.7-9.3); Neutrophils # 4.6 K/mm3 (1.8-7.8); Neutrophils % 58.2 % (37.0-80.0); Platelet Count 244 K/mm3 (142-424); Red Cell Distribution Width 14.1 % (11.5-17.5)
[2023-07-25 08:58] LABS: Alanine Aminotransferase 22 U/L (12-78); Albumin Level 4.4 g/dl (3.5-5.0); Albumin/Globulin Ratio 1.6 (1.1-1.8); Alkaline Phosphatase 73 U/L (38-126); Anion Gap 11.5 mEq/L (5-15); Aspartate Amino Transferase 21 U/L (17-59); Bilirubin,Total 0.5 mg/dl (0.2-1.3); Blood Urea Nitrogen 17 mg/dl (9-20); Carbon Dioxide 28 mmol/L (22.0-30.0); Chloride 105 mmol/L (98-107); Creatinine Clearance Estimated 101 mL/min (50-200); Estimated Glomerular Filt Rate 69 ml/min (>60); GFR (African American) 83 ML/MIN (>60); Globulin 2.7 g/dL (1.3-3.2); Glucose 119 mg/dl (74-100); Magnesium 2.2 mg/dl (1.6-2.3); Potassium 3.5 mmoL/L (3.5-5.1); Sodium 141 mmol/L (136-145); Total Protein,Serum 7.1 g/dl (6.3-8.2)
--- NOTE | 2023-07-25 09:01 | PC.NURSE ---
Dr. Asher at BS for pt eval
--- NOTE | 2023-07-25 09:02 | PC.NURSE ---
DR HEDRICK AT BEDSIDE
--- NOTE | 2023-07-25 09:19 | PC.NURSE ---
Rounded on pt to see if they had any needs. No needs at this time
[2023-07-25 09:21] LABS: Troponin I < 0.01 ng/ml (0.00-0.034)
--- NOTE | 2023-07-25 09:35 | PC.NURSE ---
CARDIOLOGY NOTIFIED OF CONSULT
--- NOTE | 2023-07-25 09:39 | PC.NURSE ---
DR HEDRICK SPOKE WITH DR DOW, PREP PT FOR HEART CATH
[2023-07-25 09:49] LABS: NT Pro Brain Natriuretic Pep. 65.1 pg/mL (0-125)
--- NOTE | 2023-07-25 09:54 | PC.NURSE ---
Pt chnaged into gown and shaved. Call light remains within reach.
--- NOTE | 2023-07-25 11:11 | PC.NURSE ---
rounded on pt to see if they had any needs. pt had no needs at this time. 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
--- NOTE | 2023-07-25 12:02 | PC.NURSE ---
rounded on patient and updated him on plan of care/wait time.
[2023-07-25 12:44] LABS: Troponin I < 0.01 ng/ml (0.00-0.034)
--- NOTE | 2023-07-25 13:33 | PC.NURSE ---
Spoke with Dr. Asher regarding bed availability on the floor and patient waiting for cath. Dr. Asher to call hospitalist at this time for admission. pt updated on poc.
--- NOTE | 2023-07-25 13:39 | INFXCTL.NOTE ---
DR BRUNSON ACCEPTS PT FOR ADMISSION
--- NOTE | 2023-07-25 13:40 | PC.NURSE ---
PT AND FAMILY UPDATED AT THIS TIME
--- NOTE | 2023-07-25 13:40 | PC.NURSE ---
[employer] [employer] NOTIFIED OF ADMISSION
--- NOTE | 2023-07-25 13:42 | P.HP_ITS ---
History of Present Illness *Admission Date: 07/25/23 *Reason for visit:: Chest pain *History of present illness: 57-year-old male with history of CAD, diabetes, right lower extremity amputation, hyperlipidemia had for cardiology clinic today with his . States that over the past 6 months he has had chest pain off and on. Over the past few days it felt like a vice marshmallow maker around his chest however. Pain most significant in center and left lower chest. Combination of pressure and stab morris-like. Denies any shortness of breath. Previous history of stents in 2019. Given unstable angina, numerous risk factors, patient was sent to the ER for initial workup. Initial troponin negative, EKG with no acute ischemic changes. Cardiology evaluated and decision made to take patient for left heart cath due to risk factors and classic pain. Medicine was consulted for admission. Patient taken to the [facility] with following findings: Severe mid LAD disease as described above with successful stenting of the proximal mid LAD reducing moderate and severe disease to 0% with 2 contiguous drug-eluting stents Moderate to severe ostial proximal circumflex artery which extended into a severely diseased terminal obtuse marginal artery with successful stenting of the ostial proximal circumflex artery reducing the stenosis to 0% and increasing inflow distally while treating the distal vessel medically due to smaller caliber distal vessel Normal ejection fraction Borderline LVEDP After arriving to the floor, patient is alert and oriented. No chest pain at this time. No nausea or vomiting. On room air. Blood pressure well-controlled [facility] Disclaimer: The information contained in this section may have been updated after the patient was seen, as this information can be updated by other users. Medical History Amputated finger Amputated toe of left foot CAD (coronary artery disease) Chest pain Diabetes mellitus Dyspnea Edema Family history of heart disease Gastroesophageal reflux disease HLD (hyperlipidemia) HTN (hypertension) Right below-knee amputee Unstable angina Surgical History History of back surgery Hx of tonsillectomy Family History No significant family history Social History Smoking Status: Never smoker second hand exposure: No alcohol intake: never substance use type: denies use current occupational status: employed Travel in the last 8 weeks: Inside the [place] household members: spouse housing: house current occupation: [employer] current occupational exposures/hazards: Yes caffeine: Yes Review of Systems Review of Systems Review of systems (narrative): 14 point review of systems performed, pertinent positives and negatives as per [facility] Meds Home Medications and Allergies Home Medications Medication Instructions Recorded Confirmed Type aspirin 81 mg tablet,delayed 81 mg PO DAILY Heart disease 12/31/19 07/25/23 History release (Adult Low Dose Aspirin) empagliflozin 10 mg tablet 10 mg PO DAILY Diabetes 12/31/19 07/25/23 History (Jardiance) hydrochlorothiazide 25 mg tablet 25 mg PO DAILY High blood pressure 12/31/19 07/25/23 History losartan 100 mg tablet 100 mg PO DAILY High blood pressure 12/31/19 07/25/23 History metformin 1,000 mg tablet 1,000 mg PO BID Diabetes 12/31/19 07/25/23 History atorvastatin 80 mg tablet 80 mg PO QHS Cholesterol #90 tabs 01/07/20 07/25/23 Rx pantoprazole 40 mg tablet,delayed 40 mg PO DAILY GERD 02/13/20 07/25/23 History release clopidogrel 75 mg tablet See Rx Instructions .Route 02/08/21 07/25/23 Rx .COMPLEX #90 tabs carvedilol 25 mg tablet See Rx Instructions .Route 03/16/21 07/25/23 Rx .COMPLEX #60 tabs amlodipine 5 mg tablet See Rx Instructions .Route 03/17/21 07/25/23 Rx .COMPLEX #30 tabs gabapentin 800 mg tablet 800 mg PO HS 12/14/21 07/25/23 History hydrocodone 10 mg-acetaminophen 1 tab PO Q8H PRN Pain 12/14/21 07/25/23 History 325 mg tablet gabapentin 300 mg tablet 300 mg PO AM 07/25/23 07/25/23 History glimepiride 2 mg tablet 2 mg PO DAILY 07/25/23 07/25/23 History insulin detemir U-100 100 unit/mL 25 unit SQ PM 07/25/23 07/25/23 History (3 mL) subcutaneous pen New Prescriptions to Start Prescriptions: Allergies Allergy/AdvReac Type Severity Reaction Status Date / Time promethazine [From Phenergan] Allergy Mild Verified 12/14/21 10:40 buspirone [From BuSpar] Allergy Verified 07/25/23 08:49 Sulfa (Sulfonamide Allergy Verified 12/14/21 10:40 Antibiotics) chlorin Allergy Uncoded 12/15/20 11:04 Exam Data for Last 24 hours Vital signs and Labs for Last 24 Hours: Temp Pulse Resp BP Pulse Ox O2 Del Method 97.9 F 59 L 11 L 105/56 L 97 Room Air 07/25/23 08:35 07/25/23 13:01 07/25/23 13:01 07/25/23 13:01 07/25/23 13:01 07/25/23 11:00 Laboratory Results - last 24 hr 07/25/23 08:37: WBC 8.0, RBC 4.60, Hgb 13.8 L, Hct 42.6, MCV 92.7, MCH 29.9, MCHC 32.3, RDW 14.1, Plt Count 244, MPV 8.3, Neut % (Auto) 58.2, Lymph % (Auto) 31.7, [place] % (Auto) 5.7, Eos % (Auto) 3.5, Baso % (Auto) 0.8, Neut # (Auto) 4.6, Lymph # (Auto) 2.5, [place] # (Auto) 0.5, Eos # (Auto) 0.3, Baso # (Auto) 0.1, Sodium 141, Potassium 3.5, Chloride 105, Carbon Dioxide 28, Anion Gap 11.5, BUN 17, Creatinine 1.10, Estimated Creat Clear 101, Estimated GFR 69, Est GFR ( Amer) 83, Glucose 119 H, Calcium 9.0, Magnesium 2.2, Total Bilirubin 0.5, AST 21, ALT 22, Alkaline Phosphatase 73, Troponin I < 0.01, NT-Pro-B Natriuret Pep 65.1, Total Protein 7.1, Albumin 4.4, Globulin 2.7, Albumin/Globulin Ratio 1.6 07/25/23 12:01: Troponin I < 0.01 I & O for Last 24 hours: Intake & Output 07/22/23 07/23/23 07/24/23 07/25/23 23:59 23:59 23:59 23:59 Weight 96.162 kg Constitutional Constitutional: no acute distress, obese, chronically ill appearing and cooperative *Routine HEENT Exam Head: Present normocephalic Eye: Present EOMI and PERRL ENT: Present mucous membranes moist Comments: Poor dentition *Routine Neck Exam Neck: Present supple; Absent lymphadenopathy *Routine Respiratory Exam Respiratory: Present CTA bilaterally; Absent rhonchi, wheezes or crackles *Routine Cardiovascular Exam Cardiovascular: Present RRR *Routine Abdominal Exam Abdominal: Present soft and normoactive bowel sounds; Absent tenderness *Routine Rectal Exam Rectal:: deferred *Routine Genitalia Exam Genitalia:: deferred *Routine Extremities Exam Extremities: Absent cyanosis, clubbing or edema Comments: Right lower extremity with BKA *Routine Skin Exam Skin: Present warm; Absent rash *Routine Neurological Exam Neurological: Present alert, oriented X3 and moving all extremities; Absent alte red mental status Assessment and Plan *Assessment and plan (1) Unstable angina: Status: Acute Category: Medical Code(s): I20.0 - Unstable angina (2) CAD (coronary artery disease): Status: Chronic Qualifiers: Associated angina: with unstable angina Coronary Disease-Associated Ar [place]/Lesion type: [place] artery [place] vs. transplanted heart: [place] heart Qualified Code(s): I25.110 - Atherosclerotic heart disease of [place] coronary artery with unstable angina pectoris Category: Medical Code(s): I25.10 - Atherosclerotic heart disease of [place] coronary artery without angina pectoris (3) HLD (hyperlipidemia): Status: Acute Qualifiers: Hyperlipidemia type: mixed hyperlipidemia Qualified Code(s): E78.2 - Mixed hyperlipidemia Category: Medical Code(s): E78.5 - Hyperlipidemia, unspecified (4) HTN (hypertension): Status: Acute Qualifiers: Hypertension type: essential hypertension Qualified Code(s): I10 - Essential (primary) hypertension Category: Medical Code(s): I10 - Essential (primary) hypertension (5) Diabetes mellitus: Status: Acute Qualifiers: Diabetes mellitus complication status: with other specified complication 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 termite technician insulin use status Diabetes mellitus type: type 2 Qualified Code(s): E11.69 - Type 2 diabetes mellitus with other specified complication Category: Medical Code(s): E11.9 - Type 2 diabetes mellitus without complications (6) Chest pain: Status: Acute Qualifiers: Chest pain type: unspecified Qualified Code(s): R07.9 - Chest pain, unspecified Category: Medical Code(s): R07.9 - Chest pain, unspecified (7) Gastroesophageal reflux disease: Status: Acute Qualifiers: Esophagitis presence: esophagitis presence not specified Qualified Code(s): K21.9 - Gastro-esophageal reflux disease without esophagitis Category: Medical Code(s): K21.9 - Gastro-esophageal reflux disease without esophagitis Plan 57-year-old male with diabetes, hypertension, CAD, CAD, presented with unstable angina to cardiology clinic. Sent to the ER for further management. Given unstable angina, ER requested admission for further cardiac workup and left heart cath. Medicine agreed to admit. Patient taken to the [facility] from the ER. Evaluated after his heart cath. Received multiple stents, see report above. Necessitating monitoring overnight. Problems addressed as follows: Unstable angina CAD Hypertension Hyperlipidemia -Cardiology consulted, appreciate their recommendations. Taken to [facility], multiple stents placed. Monitoring overnight. Initiated on dual antiplatelet therapy with aspirin and Plavix daily -Lipid panel ordered for the morning, continue Lipitor 80 mg nightly -Continue home amlodipine 5 mg, carvedilol 25 mg twice daily, HCTZ 25 mg, and losartan 100 mg daily for blood pressure -Echo pending in the morning -Continue Jardiance for heart failure and diabetes. Diabetes: Continue sliding scale insulin with fingersticks ACHS. Resume home detemir at decreased dose of 15 units nightly, continue metformin 1000 mg twice daily. A1c 6.7, currently controlled on home regimen Neuropathy/chronic pain: Continue gabapentin 800 mg nightly, 300 mg in the morning. Continue hydrocodone 10/325 every 8 hour needed for severe pain Full code Cardiac/diabetic diet Heparinized in the [facility]
--- NOTE | 2023-07-25 14:25 | PC.NURSE ---
Report given to Med Surg.
[2023-07-25 14:55] LABS: Hemoglobin A1C 6.7 % (4.0-6.0)
--- NOTE | 2023-07-25 15:08 | P.CONCA_ITS ---
History of Present Illness History of Present Illness Consult date: 07/25/23 Requesting physician: Viktor Asher Consult reason: chest pain Chief complaint: chest pain History of present illness: This is a 57-year-old white gentleman who presented to the emergency department complaints of chest pain. The patient has known coronary artery disease with a history of coronary artery stenting, hypertension, hyperlipidemia and diabetes. The patient states that he has been having chest pain and shortness of breath for the past 6 months but over the last 2 to 3 weeks it has significantly worsened. He states that he is unable to lie flat due to the shortness of breath. He is having pressure in the substernal aspect of his chest. He rates this a 5 out of 10 in intensity. It does not radiate. It is associated with shortness of breath. Worse with exertion and improves with rest. He denies any fever, chills, nausea, vomiting, diarrhea, PND or orthopnea. [facility] Disclaimer: The information contained in this section may have been updated after the patient was seen, as this information can be updated by other users. Medical History (Updated 07/25/23 @ 15:11 by Lucille Peoples APRN) CAD (coronary artery disease) Chest pain Diabetes mellitus Dyspnea Edema Family history of heart disease Gastroesophageal reflux disease HLD (hyperlipidemia) HTN (hypertension) Unstable angina Social History Smoking Status: Never smoker second hand exposure: No alcohol intake: never substance use type: denies use current occupational status: employed Travel in the last 8 weeks: [place] the [place] household members: spouse housing: house current occupation: [employer] current occupational exposures/hazards: Yes caffeine: Yes Review of Systems Review of Systems Review of systems:: pertinent systems reviewed and negative unless documented below Constitutional Constitutional: Reports system reviewed and no additional complaints, except as documented and Reports lethargy Eyes Eyes: Reports system reviewed and no additional complaints, except as documented ENT Ears, Nose, Mouth, and Throat: Reports system reviewed and no additional complaints, except as documented *Cardiovascular Cardiovascular: Reports system reviewed and no additional complaints, except as documented, Reports chest pain, Reports chest pain at rest, Reports chest pain with activity, Reports dyspnea, Reports dyspnea on exertion, Reports orthopnea and Denies radiating jaw, neck or arm pain *Respiratory Respiratory: Reports system reviewed and no additional complaints, except as documented, Reports dyspnea and Reports dyspnea on exertion *Gastrointestinal Gastrointestinal: Reports system reviewed and no additional complaints, except as documented *Genitourinary Genitourinary: Reports system reviewed and no additional complaints, except as documented *Musculoskeletal Musculoskeletal: Reports system reviewed and no additional complaints, except as documented Integumentary/Breasts Skin/Breast: Reports system reviewed and no additional complaints, except as documented *Neurologic Neurologic: Reports system reviewed and no additional complaints, except as documented Psychiatric Psychiatric: Reports system reviewed and no additional complaints, except as documented Endocrine Endocrine: Reports system reviewed and no additional complaints, except as documented Hematologic/Lymphatic Hematologic/Lymphatic: Reports system reviewed and no additional complaints, except as documented Allergic/Immunologic Allergic/Immunologic: Reports system reviewed and no additional complaints, except as documented Exam Data for Last 24 hours Vital signs and Labs for Last 24 Hours: Temp Pulse Resp BP Pulse Ox O2 Del Method 97.9 F 59 L 11 L 105/56 L 97 Room Air 07/25/23 14:40 07/25/23 14:40 07/25/23 14:40 07/25/23 14:40 07/25/23 13:01 07/25/23 14:40 Laboratory Results - last 24 hr 07/25/23 08:37: WBC 8.0, RBC 4.60, Hgb 13.8 L, Hct 42.6, MCV 92.7, MCH 29.9, MCHC 32.3, RDW 14.1, Plt Count 244, MPV 8.3, Neut % (Auto) 58.2, Lymph % (Auto) 31.7, [place] % (Auto) 5.7, Eos % (Auto) 3.5, Baso % (Auto) 0.8, Neut # (Auto) 4.6, Lymph # (Auto) 2.5, [place] # (Auto) 0.5, Eos # (Auto) 0.3, Baso # (Auto) 0.1, Sodium 141, Potassium 3.5, Chloride 105, Carbon Dioxide 28, Anion Gap 11.5, BUN 17, Creatinine 1.10, Estimated Creat Clear 101, Estimated GFR 69, Est GFR ( Amer) 83, Glucose 119 H, Calcium 9.0, Magnesium 2.2, Total Bilirubin 0.5, AST 21, ALT 22, Alkaline Phosphatase 73, Troponin I < 0.01, NT-Pro-B Natriuret Pep 65.1, Total Protein 7.1, Albumin 4.4, Globulin 2.7, Albumin/Globulin Ratio 1.6 07/25/23 12:01: Hemoglobin A1c 6.7 H, Troponin I < 0.01 I & O for Last 24 hours: Intake & Output 07/22/23 07/23/23 07/24/23 07/25/23 23:59 23:59 23:59 23:59 Weight 212 lb Constitutional Constitutional: no acute distress and average body habitus *Routine HEENT Exam Head: Present normocephalic and atraumatic ENT: Present mucous membranes moist *Routine Neck Exam Neck: Present supple, full ROM and normal carotid upstroke; Absent JVD, carotid bruit or lymphadenopathy *Routine Respiratory Exam Respiratory: Present CTA bilaterally, normal respiratory effort, able to speak in complete sentences and symmetric chest movement *Routine Cardiovascular Exam Cardiovascular: Present RRR, Normal S1 and Normal S2; Absent murmur or gallop *Routine Abdominal Exam Abdominal: Present soft and normoactive bowel sounds; Absent tenderness, distended or organomegaly *Routine Extremities Exam Extremities: Present full ROM, pulses intact and normal capillary refill; Absent cyanosis, clubbing or edema *Routine Skin Exam Skin: Present intact and warm; Absent erythema *Routine Neurological Exam Neurological: Present alert, oriented X3 and CN II-XII intact; Absent sensory deficit or motor deficit Routine Psychiatric Exam Psychiatric: Present normal affect Meds Home Medications and Allergies Home Medications Medication Instructions Recorded Confirmed Type aspirin 81 mg tablet,delayed 81 mg PO DAILY Heart disease 12/31/19 12/14/21 History release (Adult Low Dose Aspirin) empagliflozin 10 mg tablet 10 mg PO DAILY Diabetes 12/31/19 12/14/21 History (Jardiance) hydrochlorothiazide 25 mg tablet 25 mg PO DAILY High blood pressure 12/31/19 12/14/21 History insulin detemir U-100 100 unit/mL 50 unit SQ QHS Diabetes 12/31/19 12/14/21 History (3 mL) subcutaneous pen (Levemir FlexTouch U-100 Insulin) losartan 100 mg tablet 100 mg PO DAILY High blood pressure 12/31/19 12/14/21 History metformin 1,000 mg tablet 1,000 mg PO BID Diabetes 12/31/19 12/14/21 History atorvastatin 80 mg tablet 80 mg PO QHS Cholesterol #90 tabs 01/07/20 12/14/21 Rx pantoprazole 40 mg tablet,delayed 40 mg PO DAILY GERD 02/13/20 12/14/21 History release glimepiride 4 mg tablet 2 mg PO DAILY 06/15/20 12/14/21 History clopidogrel 75 mg tablet See Rx Instructions .Route 02/08/21 12/14/21 Rx .COMPLEX #90 tabs carvedilol 25 mg tablet See Rx Instructions .Route 03/16/21 12/14/21 Rx .COMPLEX #60 tabs amlodipine 5 mg tablet See Rx Instructions .Route 03/17/21 12/14/21 Rx .COMPLEX #30 tabs gabapentin 300 mg capsule 300 mg PO DAILY Pain 12/14/21 12/14/21 History gabapentin 800 mg tablet 800 mg PO HS 12/14/21 12/14/21 History hydrocodone 10 mg-acetaminophen 1 tab PO Q8H PRN 12/14/21 12/14/21 History 325 mg tablet New Prescriptions to Start Prescriptions: Allergies Allergy/AdvReac Type Severity Reaction Status Date / Time promethazine [From Phenergan] Allergy Mild Verified 12/14/21 10:40 buspirone [From BuSpar] Allergy Verified 07/25/23 08:49 Sulfa (Sulfonamide Allergy Verified 12/14/21 10:40 Antibiotics) chlorin Allergy Uncoded 12/15/20 11:04 Assessment and Plan *Assessment and plan (1) Unstable angina: Status: Acute Category: Medical Code(s): I20.0 - Unstable angina (2) CAD (coronary artery disease): Status: Chronic Qualifiers: Coronary Disease-Associated Artery/Lesion type: [place] artery [place] vs. transplanted heart: [place] heart Associated angina: with unstable angina Qualified Code(s): I25.110 - Atherosclerotic heart disease of [place] coronary artery with unstable angina pectoris Category: Medical Code(s): I25.10 - Atherosclerotic heart disease of [place] coronary artery without angina pectoris (3) HTN (hypertension): Status: Acute Qualifiers: Hypertension type: essential hypertension Qualified Code(s): I10 - Essential (primary) hypertension Category: Medical Code(s): I10 - Essential (primary) hypertension (4) HLD (hyperlipidemia): Status: Acute Qualifiers: Hyperlipidemia type: mixed hyperlipidemia Qualified Code(s): E78.2 - Mixed hyperlipidemia Category: Medical Code(s): E78.5 - Hyperlipidemia, unspecified (5) Diabetes mellitus: Status: Acute Qualifiers: Diabetes mellitus type: type 2 Diabetes mellitus chcf insulin use: unspecified chcf insulin use status Diabetes mellitus complication status: with other specified complication Qualified Code(s): E11.69 - Type 2 diabetes mellitus with other specified complication Category: Medical Code(s): E11.9 - Type 2 diabetes mellitus without complications (6) Gastroesophageal reflux disease: Status: Acute Qualifiers: Esophagitis presence: esophagitis presence not specified Qualified Code(s): K21.9 - Gastro-esophageal reflux disease without esophagitis Category: Medical Code(s): K21.9 - Gastro-esophageal reflux disease without esophagitis Plan Plan: 1. The patient is having symptoms consistent with unstable angina. Will plan to proceed with left cardiac catheterization to evaluate his coronary artery disease. The patient has a high pretest likelihood for worsening of his disease. 2. The patient has been educated the risk and benefits of proceeding with left cardiac catheterization. The patient verbalized understanding and is agreeable in proceeding with the procedure. 3. The patient will be n.p.o. in preparation for left cardiac catheterization. 4. Coronary artery disease is present. 5. His blood pressure is well-controlled. 6. His LDL goal is less than 55. Will get a lipid panel in the morning. He is on a statin. 7. The patient is diabetic. He will need aggressive control of his diabetes. Will defer this to the hospitalist. 8. Will obtain an echocardiogram to evaluate his LV function. 9. Further recommendations were made pending the patient's response to treatment and the results of his left cardiac catheterization today. Thank you for the opportunity to help participate in the care of this patient. All recommendations and orders are per Dr. Lorenzo. AMB Pre-cath Criteria Pre-cath considerations: Clinical evaluation and indication for coronary angiography includes:: know CAD and worsening angina Patient is describing chest pain symtom as:: typical angina Clinical risk factors:: CAD, HTN, HLD, [place], DM How many antianginals is the patient taking?: 2 Patient is taking:: beta bob and CCB Risks and benefits:: We will plan to proceed with LHC/coronary angiography with right radial access. The patient has been educated on the risks and benefits of proceeding with LHC/coronary angiography with right radial access. The patient verbalized understanding and is agreeable in proceeding with the procedure.
[2023-07-25] MEDS: VERAPAMIL 2.5MG/ML 2ML VIAL 2.5 MG IV (15:14)
[2023-07-25] MEDS: diphenhydrAMINE 50MG/ML VIAL 50 MG IV (15:14)
[2023-07-25] MEDS: HEPARIN 1,000 UNITS/500ML NS (CATH LAB) 3000 UNIT IV (15:14)
[2023-07-25] MEDS: 0.9 % SODIUM CHLORIDE 500 ML 25 ML IV (15:14)
[2023-07-25] MEDS: LIDOCAINE 1% 10ML MDV 20 ML IJ (15:14)
[2023-07-25] MEDS: HEPARIN 1,000 UNITS/ML 10ML VIAL (CATH LAB) 10000 UNIT IV (15:14)
[2023-07-25] MEDS: NITROGLYCERIN 800MCG/8ML SYR (CATH LAB) 800 MCG IA (15:15)
[2023-07-25] MEDS: FENTANYL 100MCG/2ML VIAL 50 MCG IV (15:37)
[2023-07-25] MEDS: MIDAZOLAM HCL 1MG/1ML 5ML VIAL 1 MG IV (15:37)
[2023-07-25] MEDS: IOPAMIDOL-370 (76%);100ML BOTTLE 170 ML IV (16:00)
[2023-07-25 16:02] LABS: CATHL Activated Clotting Time > 400 SEC (74-125)
--- NOTE | 2023-07-25 16:10 | PC.NURSE ---
arrived by keller from scientific laboratory supervisor
[2023-07-25 17:11] LABS: POC Glucose,Bedside 65 (70-110)
[2023-07-25 17:44] LABS: POC Glucose,Bedside 112 (70-110)
[2023-07-25] MEDS: HYDROCODONE 10MG/APAP 325MG TAB 1 TAB PO (18:26)
[2023-07-25] MEDS: INSULIN DETEMIR 100 UNIT/ML 3ML FLEXPEN 15 UNIT SQ (19:27)
[2023-07-25 19:38] LABS: POC Glucose,Bedside 106 (70-110)
[2023-07-25] MEDS: CARVEDILOL 25MG TABLET 25 MG PO (20:28)
[2023-07-25] MEDS: GABAPENTIN 800MG TABLET 800 MG PO (20:28)
[2023-07-25] MEDS: ATORVASTATIN 40MG TABLET 80 MG PO (20:28)
[2023-07-25 22:39] LABS: POC Glucose,Bedside 76 (70-110)
[2023-07-26] VITALS: BP 108/67; PULSE 60; PULSE 71; RESP 16; TEMP 36.9; O2SAT 90
[2023-07-26 04:00] VITALS: PULSE 60
--- NOTE | 2023-07-26 06:00 | CA_ITS ---
APPROVED REPORT EXAM: Comprehensive 2D, Doppler, and color-flow Echocardiogram Molecular Biology Director: RAMON Headley, RVS Ht: 5 ft 11 in Wt: 212lbs BSA: 2.16 BP: 105/56 mmHg Indications: S/p cardiac cath with coronary stenting, CP, CAD,HTN.Edema,SOB,DM 2D Dimensions Left Atrium 3.75 cm LA Volume 64.50 mL LA Volume Index 29.20 mL/m2 (M/F) 16-34 M-Mode Dimensions RVDd 2.56 cm (0.9-2.6) LA Diam 4.27 cm (1.9-4.0) LVDd 5.35 cm (3.5-5.7) LVDs 3.06 cm (3.5-5.7) IVSd 1.21 cm (0.6-1.1) PWd 0.98 cm (0.6-1.1) EF (Teich) 73.50% EPSs 0.40 cm FS 42.80% EDV (Teich) 138.30 mL TAPSE 2.56 (<1.7) ESV (Teich) 36.70 mL LV Diastology E Decel Time 257 (160-240 msec) E/A Ratio 1.24 MED A' 10.80 cm/s LAT A' 11.00 cm/s Aortic Valve BREANNE Index 1.38 cm2/m2 AoV Peak Awlly. 130.0 (50-130 cm/s) AO Peak GR. 6.80 mmHg AO Mean GR. 3.30 (<5 mmHg) AO VTI 27.2 (18-25 cm) BREANNE (VTI) 3.05 (2.5-4.5 cm2) Mitral Valve MV A Velocity 71.0 (40-130 cm/s) E/A Ratio 1.24 Pulmonary Valve PV Peak Velocity 79.0 (50-150 cm/s) UT End VMAX 167.0 cm/s Left Ventricle The left ventricle is normal size. The left ventricular systolic function is normal. The left ventricular ejection fraction is within the normal range. There is normal left ventricular wall thickness. There is normal LV segmental wall motion. The left ventricular diastolic function is normal. LVEF is 60%. Right Ventricle The right ventricle is normal size. The right ventricular systolic function is normal. Atria The left atrium size is normal. The right atrium size is normal. There is no Doppler evidence of interatrial shunt. Aortic Valve The aortic valve opens well. There is no aortic valvular stenosis. No aortic regurgitation is present. Mitral Valve The mitral valve is normal in structure. No evidence of mitral valve stenosis. There is no mitral valve regurgitation noted. Tricuspid Valve The tricuspid valve leaflets are thin and pliable. Trace tricuspid regurgitation. There is insufficient TR jet to estimate RVSP. Pulmonic Valve The pulmonary valve is normal in structure. Trace pulmonic regurgitation. Great Vessels The aortic root is normal in size. The ascending aorta is normal in size. IVC is normal in size and collapses >50% with inspiration. Pericardium There is no pericardial effusion. Other Information Study Quality: Adequate Conclusion Normal biventricular systolic function. No significant valvular stenosis or regurgitation. Electronically signed by : Claudia José MD 07/28/2023 22:07:49
[2023-07-26] MEDS: GABAPENTIN 300 MG 300 EACH PO (06:54)
[2023-07-26 07:35] LABS: Basophils # 0.1 K/mm3 (0-0.2); Basophils % 0.6 % (0.1-2.0); Eosinophils # 0.2 K/mm3 (0.0-0.4); Eosinophils % 2.6 % (0.1-12.0); Hematocrit 39.3 % (42.0-52.0); Hemoglobin 12.8 g/dL (14.1-18.0); Lymphocytes # 2.8 K/mm3 (0.7-4.5); Lymphocytes % 29.9 % (10-50); Mean Corpuscular HGB Conc 32.4 g/dL (31.8-35.4); Mean Corpuscular Hemoglobin 30.2 pg (27.0-31.2); Mean Corpuscular Volume 93.2 fl (80-94); Mean Platelet Volume 8.5 fl (7.4-10.4); Monocytes # 0.6 K/mm3 (0.1-1.0); Monocytes % 5.9 % (1.7-9.3); Neutrophils # 5.6 K/mm3 (1.8-7.8); Neutrophils % 60.9 % (37.0-80.0); Platelet Count 219 K/mm3 (142-424); Red Blood Count 4.22 M/mm3 (4.60-6.20); Red Cell Distribution Width 14.3 % (11.5-17.5); White Blood Count 9.2 K/mm3 (4.8-10.8)
[2023-07-26 07:44] LABS: Alanine Aminotransferase 20 U/L (12-78); Albumin Level 3.8 g/dl (3.5-5.0); Albumin/Globulin Ratio 1.5 (1.1-1.8); Alkaline Phosphatase 76 U/L (38-126); Anion Gap 10.5 mEq/L (5-15); Aspartate Amino Transferase 29 U/L (17-59); Bilirubin,Total 0.5 mg/dl (0.2-1.3); Blood Urea Nitrogen 16 mg/dl (9-20); Calcium 8.4 mg/dl (8.4-10.2); Carbon Dioxide 28 mmol/L (22.0-30.0); Chloride 105 mmol/L (98-107); Chol/HDL Ratio 4.3 (1-3.5); Cholesterol 64 mg/dl (140-200); Creatinine Clearance Estimated 102 mL/min (50-200); Estimated Glomerular Filt Rate 69 ml/min (>60); GFR (African American) 83 ML/MIN (>60); Globulin 2.6 g/dL (1.3-3.2); Glucose 85 mg/dl (74-100); HDL Cholesterol 15 mg/dl (40-60); Magnesium 2.2 mg/dl (1.6-2.3); Potassium 3.5 mmoL/L (3.5-5.1); Sodium 140 mmol/L (136-145); Total Protein,Serum 6.4 g/dl (6.3-8.2); Triglycerides 170 mg/dl (30-150); VLDL Cholesterol 34 mg/dL (0-40)
[2023-07-26 07:55] LABS: Direct LDL Cholesterol 33.31 mg/dL (100-129)
[2023-07-26 08:00] VITALS: BP 121/69; PULSE 66; RESP 18; TEMP 36.8; O2SAT 96
--- NOTE | 2023-07-26 08:02 | EXP.DC.SUM ---
General Admission date:: 07/25/23 Discharge date: 07/26/23 HPI HPI HPI: 57-year-old male with history of CAD, diabetes, right lower extremity amputation, hyperlipidemia had for cardiology clinic today with his . States that over the past 6 months he has had chest pain off and on. Over the past few days it felt like a vice quality assurance associate around his chest however. Pain most significant in center and left lower chest. Combination of pressure and stabbing-like. Denies any shortness of breath. Previous history of stents in 2019. Given unstable angina, numerous risk factors, patient was sent to the ER for initial workup. Initial troponin negative, EKG with no acute ischemic changes. Cardiology evaluated and decision made to take patient for left heart cath due to risk factors and classic pain. Medicine was consulted for admission. Patient taken to the [facility] with following findings: Severe mid LAD disease as described above with successful stenting of the proximal mid LAD reducing moderate and severe disease to 0% with 2 contiguous drug-eluting stents Moderate to severe ostial proximal circumflex artery which extended into a severely diseased terminal obtuse marginal artery with successful stenting of the ostial proximal circumflex artery reducing the stenosis to 0% and increasing inflow distally while treating the distal vessel medically due to smaller caliber distal vessel Normal ejection fraction Borderline LVEDP After arriving to the floor, patient is alert and oriented. No chest pain at this time. No nausea or vomiting. On room air. Blood pressure well-controlled Hospital Course Hospital Course Hospital Course: 57-year-old male with diabetes, hypertension, CAD, CAD, presented with unstable angina to cardiology clinic. Sent to the ER for further management. Given unstable angina, ER requested admission for further cardiac workup and left heart cath. Medicine agreed to admit. Patient taken to the [facility] from the ER. Evaluated after his heart cath. Received multiple stents, see report above. Necessitating monitoring overnight. Did well overnight with no further events. Chest pain resolved. Stable to discharge home. Problems addressed as follows: Unstable angina CAD Hypertension Hyperlipidemia -Cardiology consulted and assisted with care. Patient was taken to the [facility] from the ER because of unstable angina. Had multiple lesions needing intervention. See cath report for full details. Tolerated procedure well. Chest pain resolved. Initiated on dual antiplatelet therapy with aspirin and Plavix. Continue amlodipine 5 mg daily, carvedilol 25 mg twice daily, HCTZ 25 mg daily and losartan 100 mg daily for blood pressure. Lipid panel obtained with LDL of 33. Continue Lipitor nightly at discharge. Echo obtained, formal read still pending at discharge. Continue Jardiance for heart failure and diabetes. Diabetes: Continue sliding scale insulin with fingersticks ACHS. Resume home detemir at decreased dose of 15 units nightly, continue metformin 1000 mg twice daily. A1c 6.7, currently controlled on home regimen, Neuropathy/chronic pain: Continue gabapentin 800 mg nightly, 300 mg in the morning. Continue hydrocodone 10/325 every 8 hour needed for severe pain Exam Data for Last 24 hours Vital signs and Labs for Last 24 Hours: Temp Pulse Resp BP Pulse Ox O2 Del Method 98.4 F 60 16 108/67 L 90 L Room Air 07/26/23 00:00 07/26/23 04:00 07/26/23 00:00 07/26/23 00:00 07/26/23 00:00 07/26/23 07:00 Laboratory Results - last 24 hr 07/25/23 08:37: WBC 8.0, RBC 4.60, Hgb 13.8 L, Hct 42.6, MCV 92.7, MCH 29.9, MCHC 32.3, RDW 14.1, Plt Count 244, MPV 8.3, Neut % (Auto) 58.2, Lymph % (Auto) 31.7, [place] % (Auto) 5.7, Eos % (Auto) 3.5, Baso % (Auto) 0.8, Neut # (Auto) 4.6, Lymph # (Auto) 2.5, [place] # (Auto) 0.5, Eos # (Auto) 0.3, Baso # (Auto) 0.1, Sodium 141, Potassium 3.5, Chloride 105, Carbon Dioxide 28, Anion Gap 11.5, BUN 17, Creatinine 1.10, Estimated Creat Clear 101, Estimated GFR 69, Est GFR ( Amer) 83, Glucose 119 H, Calcium 9.0, Magnesium 2.2, Total Bilirubin 0.5, AST 21, ALT 22, Alkaline Phosphatase 73, Troponin I < 0.01, NT-Pro-B Natriuret Pep 65.1, Total Protein 7.1, Albumin 4.4, Globulin 2.7, Albumin/Globulin Ratio 1.6 07/25/23 12:01: Hemoglobin A1c 6.7 H, Troponin I < 0.01 07/25/23 16:27: Activated Clotting Time > 400 H* 07/25/23 16:43: POC Glucose 65 L 07/25/23 17:37: POC Glucose 112 H 07/25/23 19:24: POC Glucose 106 07/25/23 22:31: POC Glucose 76 07/26/23 06:26: WBC 9.2, RBC 4.22 L, Hgb 12.8 L, Hct 39.3 L, MCV 93.2, MCH 30.2, MCHC 32.4, RDW 14.3, Plt Count 219, MPV 8.5, Neut % (Auto) 60.9, Lymph % (Auto) 29.9, [place] % (Auto) 5.9, Eos % (Auto) 2.6, Baso % (Auto) 0.6, Neut # (Auto) 5.6, Lymph # (Auto) 2.8, [place] # (Auto) 0.6, Eos # (Auto) 0.2, Baso # (Auto) 0.1 I & O for Last 24 hours: Intake & Output 07/23/23 07/24/23 07/25/23 07/26/23 23:59 23:59 23:59 23:59 Intake Total 360 / 360 Output Total 0 / 0 Balance 360 / 360 Weight 96.162 kg 97.341 kg Constitutional Constitutional: no acute distress, obese and chronically ill appearing *Routine HEENT Exam Head: Present normocephalic Eye: Present EOMI and PERRL ENT: Present mucous membranes moist *Routine Neck Exam Neck: Present supple; Absent lymphadenopathy *Routine Respiratory Exam Respiratory: Present CTA bilaterally; Absent rhonchi, wheezes or crackles *Routine Cardiovascular Exam Cardiovascular: Present RRR *Routine Abdominal Exam Abdominal: Present soft and normoactive bowel sounds; Absent tenderness *Routine Extremities Exam Extremities: Absent cyanosis, clubbing or edema Comments: amputations: Right BKA; Right hand 2nd,3rd digits *Routine Skin Exam Skin: Present warm; Absent rash *Routine Neurological Exam Neurological: Present alert, oriented X3 and moving all extremities; Absent altered mental status Results Data Completed and Pending Labs on day of discharge: Labs from last 24 hours 07/26/23 07/25/23 07/25/23 06:26 22:31 19:24 WBC 9.2 RBC 4.22 L Hgb 12.8 L Hct 39.3 L MCV 93.2 MCH 30.2 MCHC 32.4 RDW 14.3 Plt Count 219 MPV 8.5 Neut % (Auto) 60.9 Lymph % (Auto) 29.9 [place] % (Auto) 5.9 Eos % (Auto) 2.6 Baso % (Auto) 0.6 Neut # (Auto) 5.6 Lymph # (Auto) 2.8 [place] # (Auto) 0.6 Eos # (Auto) 0.2 Baso # (Auto) 0.1 Activated Clotting Time Sodium Potassium Chloride Carbon Dioxide Anion Gap BUN Creatinine Estimated Creat Clear Estimated GFR Est GFR ( Amer) Glucose POC Glucose 76 106 Hemoglobin A1c Calcium Magnesium Total Bilirubin AST ALT Alkaline Phosphatase Troponin I NT-Pro-B Natriuret Pep Total Protein Albumin Globulin Albumin/Globulin Ratio 07/25/23 07/25/23 07/25/23 17:37 16:43 16:27 WBC RBC Hgb Hct MCV MCH MCHC RDW Plt Count MPV Neut % (Auto) Lymph % (Auto) [place] % (Auto) Eos % (Auto) Baso % (Auto) Neut # (Auto) Lymph # (Auto) [place] # (Auto) Eos # (Auto) Baso # (Auto) Activated Clotting Time > 400 H* Sodium Potassium Chloride Carbon Dioxide Anion Gap BUN Creatinine Estimated Creat Clear Estimated GFR Est GFR ( Amer) Glucose POC Glucose 112 H 65 L Hemoglobin A1c Calcium Magnesium Total Bilirubin AST ALT Alkaline Phosphatase Troponin I NT-Pro-B Natriuret Pep Total Protein Albumin Globulin Albumin/Globulin Ratio 07/25/23 07/25/23 12:01 08:37 WBC 8.0 RBC 4.60 Hgb 13.8 L Hct 42.6 MCV 92.7 MCH 29.9 MCHC 32.3 RDW 14.1 Plt Count 244 MPV 8.3 Neut % (Auto) 58.2 Lymph % (Auto) 31.7 [place] % (Auto) 5.7 Eos % (Auto) 3.5 Baso % (Auto) 0.8 Neut # (Auto) 4.6 Lymph # (Auto) 2.5 [place] # (Auto) 0.5 Eos # (Auto) 0.3 Baso # (Auto) 0.1 Activated Clotting Time Sodium 141 Potassium 3.5 Chloride 105 Carbon Dioxide 28 Anion Gap 11.5 BUN 17 Creatinine 1.10 Estimated Creat Clear 101 Estimated GFR 69 Est GFR ( Amer) 83 Glucose 119 H POC Glucose Hemoglobin A1c 6.7 H Calcium 9.0 Magnesium 2.2 Total Bilirubin 0.5 AST 21 ALT 22 Alkaline Phosphatase 73 Troponin I < 0.01 < 0.01 NT-Pro-B Natriuret Pep 65.1 Total Protein 7.1 Albumin 4.4 Globulin 2.7 Albumin/Globulin Ratio 1.6 DS: Diagnosis Discharge Diagnosis (1) Unstable angina: Status: Acute Code(s): I20.0 - Unstable angina (2) CAD (coronary artery disease): Status: Chronic Code(s): I25.10 - Atherosclerotic heart disease of [place] coronary artery without angina pectoris Qualifiers: Associated angina: with unstable angina Coronary Disease-Associated Artery/Lesion type: [place] artery [place] vs. transplanted heart: [place] heart Qualified Code(s): I25.110 - Atherosclerotic heart disease of [place] coronary artery with unstable angina pectoris (3) HLD (hyperlipidemia): Status: Acute Code(s): E78.5 - Hyperlipidemia, unspecified Qualifiers: Hyperlipidemia type: mixed hyperlipidemia Qualified Code(s): E78.2 - Mixed hyperlipidemia (4) HTN (hypertension): Status: Acute Code(s): I10 - Essential (primary) hypertension Qualifiers: Hypertension type: essential hypertension Qualified Code(s): I10 - Essential (primary) hypertension (5) Diabetes mellitus: Status: Acute Code(s): E11.9 - Type 2 diabetes mellitus without complications Qualifiers: Diabetes mellitus complication status: with other specified complication Diabetes mellitus [facility] insulin use: unspecified [employer] or intermediate [employer] principal insulin use status Diabetes mellitus type: type 2 Qualified Code(s): E11.69 - Type 2 diabetes mellitus with other specified complication (6) Chest pain: Status: Acute Code(s): R07.9 - Chest pain, unspecified Qualifiers: Chest pain type: unspecified Qualified Code(s): R07.9 - Chest pain, unspecified (7) Gastroesophageal reflux disease: Status: Acute Code(s): K21.9 - Gastro-esophageal reflux disease without esophagitis Qualifiers: Esophagitis presence: esophagitis presence not specified Qualified Code(s): K21.9 - Gastro-esophageal reflux disease without esophagitis Meds Home Medications and Allergies Home Medications Medication Instructions Recorded Confirmed Type empagliflozin 10 mg tablet 10 mg PO DAILY 12/31/19 07/25/23 History (Jardiance) hydrochlorothiazide 25 mg tablet 25 mg PO DAILY 12/31/19 07/25/23 History losartan 100 mg tablet 100 mg PO DAILY 12/31/19 07/25/23 History metformin 1,000 mg tablet 1,000 mg PO BID 12/31/19 07/25/23 History pantoprazole 40 mg tablet,delayed 40 mg PO DAILY 02/13/20 07/25/23 History release gabapentin 800 mg tablet 800 mg PO HS 12/14/21 07/25/23 History hydrocodone 10 mg-acetaminophen 1 tab PO Q8H PRN Pain 12/14/21 07/25/23 History 325 mg tablet gabapentin 300 mg tablet 300 mg PO AM 07/25/23 07/25/23 History glimepiride 2 mg tablet 2 mg PO DAILY 07/25/23 07/25/23 History insulin detemir U-100 100 unit/mL 15 unit SQ PM 07/25/23 07/26/23 History (3 mL) subcutaneous pen amlodipine 5 mg tablet 5 mg PO DAILY 30 days #30 tabs 07/26/23 Rx aspirin 81 mg tablet,delayed 81 mg PO DAILY 30 days #30 tabs 07/26/23 Rx release (Adult Low Dose Aspirin) atorvastatin 80 mg tablet 80 mg PO QHS 30 days #30 tabs 07/26/23 Rx carvedilol 25 mg tablet 25 mg PO BID 30 days #60 tabs 07/26/23 Rx clopidogrel 75 mg tablet 75 mg PO DAILY 30 days #30 tabs 07/26/23 Rx New Prescriptions to Start Prescriptions: Harshad Lebron aspirin [Adult Low Dose Aspirin] Harshad Guardado atorvastatin Harshad Guardado carvedilol Harshad Guardado clopidogrel Harshad Guardado Allergies Allergy/AdvReac Type Severity Reaction Status Date / Time promethazine [From Phenergan] Allergy Mild Verified 12/14/21 10:40 buspirone [From BuSpar] Allergy Verified 07/25/23 08:49 Sulfa (Sulfonamide Allergy Verified 12/14/21 10:40 Antibiotics) chlorin Allergy Uncoded 12/15/20 11:04 Discharge Plan Disposition Patient Disposition: Home, Self-Care Condition: Good Follow up Plan Follow up with: Vicenta Joaquin APRN [Primary Care Provider] - 08/02/23 10:20 am Bryce Lorenzo MD [Staff Physician] - 08/09/23 11:30 am Prescriptions/Medication Reconciliation: Continued gabapentin 800 mg tablet 800 mg PO HS Patient Comments: TAKE ONE (1) TABLET BY MOUTH AT BEDTIME hydrocodone-acetaminophen 10-325 mg tablet 1 tab PO Q8H PRN (Reason: Pain) Patient Comments: TAKE ONE (1) TABLET EVERY 8 HOURS BY ORAL ROUTE NEEDED FOR 14 DAYS. losartan 100 mg tablet 100 mg PO DAILY Patient Comments: TK 1 T PO QD Jardiance 10 mg tablet 10 mg PO DAILY metformin 1,000 mg tablet 1,000 mg PO BID hydrochlorothiazide 25 mg tablet 25 mg PO DAILY Patient Comments: TK 1 T PO QD glimepiride 2 mg Tablet 2 mg PO DAILY gabapentin 300 mg Tablet 300 mg PO AM insulin detemir U-100 100 unit/mL (3 mL) Insulin Pen 15 unit SQ PM atorvastatin 80 mg tablet 80 mg PO QHS 30 Days Qty: 30 0RF carvedilol 25 mg tablet 25 mg PO BID 30 Days Qty: 60 0RF amlodipine 5 mg tablet 5 mg PO DAILY 30 Days Qty: 30 0RF aspirin [Adult Low Dose Aspirin] 81 mg tablet,delayed release (DR/EC) 81 mg PO DAILY 30 Days Qty: 30 0RF pantoprazole 40 MG tablet,delayed release (DR/EC) 40 mg PO DAILY Changed clopidogrel 75 mg tablet 75 mg PO DAILY 30 Days Qty: 30 0RF Rx Instructions: TAKE 1 TABLET BY MOUTH EVERY DAY Problem Reconciliation Problems Reviewed?: Yes Patient Discharge Instructions ACTIVITY: Continue current activity DIET: continue same diet Patient Instructions: DI for Angina, DI for Cardiac Catheterization, DI for Surgical Site Infection Providers Primary Care Provider: Vicenta Joaquin Admit Provider: Harshad Guardado Attending Provider: Harshad Guardado
--- NOTE | 2023-07-26 08:28 | HMH.PHAINT1 ---
Pharmacy Intervention Comments: Verified home medications using external fill history, recent office visit note, and provider note from Dr. Guardado to confirm new medications; of note, insulin detemir dose reduced from 25 units daily to 15 units daily.
[2023-07-26] MEDS: IRBESARTAN 150MG TAB 150 MG PO (09:01)
[2023-07-26] MEDS: ASPIRIN EC 81MG TABLET 81 MG PO (09:01)
[2023-07-26] MEDS: AMLODIPINE 5MG TABLET 5 MG PO (09:01)
[2023-07-26] MEDS: CLOPIDOGREL 75MG TAB 75 MG PO (09:01)
[2023-07-26] MEDS: METFORMIN 500MG TABLET 1000 MG PO (09:02)
[2023-07-26] MEDS: hydroCHLOROthiazide 25MG TABLET 25 MG PO (09:02)
[2023-07-26] MEDS: CARVEDILOL 25MG TABLET 25 MG PO (09:02)
--- NOTE | 2023-07-26 10:46 | P.PN_ITS ---
Subjective Subjective Date: 07/26/23 Time: 09:30 Principal diagnosis: angina, CAD s/p stenting Interval history: The patient presented to the emergency department with chest pain and underwent left cardiac catheterization for unstable angina. The patient had stenting to the LAD with 2 stents and to the circumflex artery with 2 stents. The patient tolerated the procedure well. This morning he denies any chest pain or pressure. He denies any shortness of breath or edema. He denies any fever, chills, nausea, vomiting, diarrhea, PND or orthopnea. His right radial access site has no pain or bleeding noted. Exam Data for Last 24 hours Vital signs and Labs for Last 24 Hours: Temp Pulse Resp BP Pulse Ox O2 Del Method 98.2 F 66 18 121/69 96 Room Air 07/26/23 08:00 07/26/23 08:00 07/26/23 08:00 07/26/23 08:00 07/26/23 08:00 07/26/23 09:00 Laboratory Results - last 24 hr 07/25/23 12:01: Hemoglobin A1c 6.7 H, Troponin I < 0.01 07/25/23 16:27: Activated Clotting Time > 400 H* 07/25/23 16:43: POC Glucose 65 L 07/25/23 17:37: POC Glucose 112 H 07/25/23 19:24: POC Glucose 106 07/25/23 22:31: POC Glucose 76 07/26/23 06:26: WBC 9.2, RBC 4.22 L, Hgb 12.8 L, Hct 39.3 L, MCV 93.2, MCH 30.2, MCHC 32.4, RDW 14.3, Plt Count 219, MPV 8.5, Neut % (Auto) 60.9, Lymph % (Auto) 29.9, [place] % (Auto) 5.9, Eos % (Auto) 2.6, Baso % (Auto) 0.6, Neut # (Auto) 5.6, Lymph # (Auto) 2.8, [place] # (Auto) 0.6, Eos # (Auto) 0.2, Baso # (Auto) 0.1, Sodium 140, Potassium 3.5, Chloride 105, Carbon Dioxide 28, Anion Gap 10.5, BUN 16, Creatinine 1.10, Estimated Creat Clear 102, Estimated GFR 69, Est GFR ( Amer) 83, Glucose 85 D, Calcium 8.4, Magnesium 2.2, Total Bilirubin 0.5, AST 29 D, ALT 20, Alkaline Phosphatase 76, Total Protein 6.4, Albumin 3.8 D, Globulin 2.6, Albumin/Globulin Ratio 1.5, Triglycerides 170 H, Cholesterol 64 L, LDL Cholesterol Direct 33.31 L, VLDL Cholesterol 34, HDL Cholesterol 15 L, Cholesterol/HDL Ratio 4.3 H I & O for Last 24 hours: Intake & Output 07/23/23 07/24/23 07/25/23 07/26/23 23:59 23:59 23:59 23:59 Intake Total 840 / 840 Output Total 0 / 0 Balance 840 / 840 Weight 212 lb 214 lb 9.6 oz Constitutional Constitutional: no acute distress and average body habitus *Routine HEENT Exam Head: Present normocephalic and atraumatic ENT: Present mucous membranes moist *Routine Neck Exam Neck: Present supple, full ROM and normal carotid upstroke; Absent JVD, carotid bruit or lymphadenopathy *Routine Respiratory Exam Respiratory: Present CTA bilaterally, normal respiratory effort, able to speak in complete sentences and symmetric chest movement *Routine Cardiovascular Exam Cardiovascular: Present RRR, Normal S1 and Normal S2; Absent murmur or gallop *Routine Abdominal Exam Abdominal: Present soft and normoactive bowel sounds; Absent tenderness, distended or organomegaly *Routine Extremities Exam Extremities: Present full ROM, pulses intact, normal capillary refill and ampu tation (R BKA); Absent cyanosis, clubbing or edema *Routine Skin Exam Skin: Present intact and warm; Absent erythema *Routine Neurological Exam Neurological: Present alert, oriented X3 and CN II-XII intact; Absent sensory deficit or motor deficit Routine Psychiatric Exam Psychiatric: Present normal affect Progress Note: A&P Assessment and plan (1) CAD (coronary artery disease): Status: Chronic (2) HLD (hyperlipidemia): Status: Acute (3) HTN (hypertension): Status: Acute (4) Diabetes mellitus: Status: Acute (5) Gastroesophageal reflux disease: Status: Acute Assessment and Plan Assessment and Plan for All Diagnoses:: Plan: 1. The patient was admitted with unstable angina and underwent left cardiac catheterization with stenting to the LAD x 2 stents and stenting to the circumflex artery x 2 stents. The patient will be on aspirin and Plavix for dual antiplatelet therapy. 2. Coronary artery disease is present and stable. 5. His blood pressure is well-controlled. 6. His LDL goal is less than 55. LDL is 33. He is on a statin. 7. The patient is diabetic. He will need aggressive control of his diabetes. Will defer this to the hospitalist. 8. Preliminary echo shows 9. No further recommendations at this time from a cardiac standpoint. The patient is stable for discharge home today from a cardiac standpoint with appointment in cardiology clinic in 1 week. The patient will need to be discharged on the following cardiac medications: Norvasc 5 mg p.o. daily, aspirin 81 mg daily, Lipitor 80 mg p.o. nightly, Coreg 25 mg p.o. twice daily, Plavix 75 mg daily, Jardiance 10 mg daily, hydrochlorothiazide 25 mg daily, Protonix 40 mg daily, losartan 100 mg daily. Thank you for the opportunity to help participate in the care of this patient. All recommendations and orders are per Dr. Lorenzo.
--- NOTE | 2023-07-27 15:03 | CARE MANAGER ---
Patient called and states he feels the same. He is aware of his follow up appointment and denies any questions or concerns. FRANCISCO Roy
== END 2023-07-26 11:33 | disposition home or self-care (01) ==
LOC: ER 09:25 → 2ND 14:08
PROVIDERS: Internal Medicine; Admitting Provider Internal Medicine Adolescent Medicine; Emergency Provider Emergency Medicine; PCP Nurse Practitioner Family; Visit Provider Internal Medicine Adolescent Medicine
DX: I25.110 Atherosclerotic heart disease of native coronary artery with unstable angina pectoris; E78.2 Mixed hyperlipidemia; I10 Essential (primary) hypertension; R07.9 Chest pain, unspecified; K21.9 Gastro-esophageal reflux disease without esophagitis; Z89.511 Acquired absence of right leg below knee; E11.42 Type 2 diabetes mellitus with diabetic polyneuropathy
CPT/HCPCS: 36415; 71045; 80053; 80061; 82962; 83036; 83735; 83880; 84484; 85025; 85347; 92928; 93005; 93306; 93458; 93571; 99152; 99153; 99285; C1725; C1760; C1769; C1876; C9600; G0378; J1644; Q9967